=== PATIENT | female | born 1950 | race Caucasian/White ===

== ENCOUNTER → 2020-04-30 08:09 | Outpatient (BNVA) | payer BC, SELFPAY | PROVIDERS: PCP Family Medicine; Referring Provider Family Medicine; Visit Provider Surgery | DX: E66.9 Obesity, unspecified (principal); I10 Essential (primary) hypertension; R11.0 Nausea; Z68.38 Body mass index [BMI] 38.0-38.9, adult ==

== ENCOUNTER 2020-05-08 09:25 | Outpatient (REF) | payer BC, SELFPAY ==
[2020-05-08 10:43] LABS: MANUAL DIFF FLAG NO
[2020-05-08 10:48] LABS: Basophils Percent Auto 0.3 % (0-2); Eosinophils Absolute Auto 0.1 X10*3/uL (0.0-0.4); Eosinophils Percent Auto 1.7 % (0-4); Hematocrit 39.5 % (37-47); Hemoglobin 12.6 g/dl (12.0-16.0); Imm Gran Abs Auto 0.02 X10*3/uL (0.00-0.03); Imm Gran Pct Auto 0.3 % (0.0-0.4); Lymphocytes Absolute Auto 1.1 X10*3/uL (1.2-4.9); Lymphocytes Percent Auto 18.3 % (20-40); Mean Corpuscular HGB Conc 31.9 g/dl (31.0-35.0); Mean Corpuscular Hemoglobin 31.7 pg (27.0-33.0); Mean Corpuscular Volume 99.2 fL (80-98); Mean Platelet Volume 11.9 fL (9.4-12.3); Monocytes Absolute Auto 0.4 X10*3/uL (0.1-1.2); Monocytes Percent Auto 6.2 % (2-11); Neutrophils Absolute Auto 4.2 X10*3/uL (2.0-8.3); Neutrophils Percent Auto 73.2 % (45-73); Platelet Count 220 X10*3/uL (160-400); Red Blood Count 3.98 X10*6/uL (4.20-5.50); Red Cell Distribution Width 12.9 % (11.0-16.0); White Blood Count 5.8 X10*3/uL (4.8-10.8)
[2020-05-08 10:53] LABS: INTERNATIONAL NORM RATIO 1.1 (0.9-1.1)
[2020-05-08 10:55] LABS: Partial Thromboplastin Time 34.2 SEC (24.1-38.0)
[2020-05-08 11:19] LABS: Alanine Aminotransferase 17 U/L (0-31); Albumin Level 4.4 g/dL (3.5-5.0); Alkaline Phosphatase 85 U/L (39-117); Anion Gap 11 (12-20); Aspartate Amino Transferase 18 U/L (5-31); Bilirubin Total 0.7 mg/dL (0.0-1.0); Blood Urea Nitrogen 26 mg/dL (9-16); C Reactive Protein 1.09 mg/dL (< or = 0.50); Calcium 9.2 mg/dL (8.4-10.2); Carbon Dioxide 31 mmol/L (22-29); Chloride 101 mmol/L (96-108); Cholesterol 192 mg/dL; Estimated Glomerular Filt Rate > 60; Glucose Fasting 93 mg/dL (60-99); HDL Cholesterol 53 mg/dL; LDL Cholesterol Calculated 121 mg/dl; Potassium 4.4 mmol/l (3.3-5.1); Sodium 139 mmol/L (135-145); Total Protein 6.9 g/dL (6.5-8.0); Triglycerides 92 mg/dL
[2020-05-08 11:42] LABS: Thyroid Stimulating Hormone 1.45 mIU/mL (0.32-4.0)
[2020-05-08 11:51] LABS: Estimated Average Glucose 108 mg/dL; Hemoglobin A1c % 5.4 %
[2020-05-09 12:57] LABS: Insulin Level Total 12.1 uIU/mL
== END 2020-05-08 09:26 | disposition home or self-care (01) ==
LOC: HO.LAB 09:25
PROVIDERS: PCP Family Medicine; Visit Provider Surgery
DX: E66.9 Obesity, unspecified (principal); Z68.38 Body mass index [BMI] 38.0-38.9, adult
CPT/HCPCS: 36415; 80053; 80061; 83036; 83525; 84443; 85025; 85610; 85730; 86140; 86850; 86900; 86901

== ENCOUNTER → 2020-05-09 13:50 | Outpatient (BNVA) | payer BC, SELFPAY | PROVIDERS: PCP Family Medicine; Visit Provider Physician Assistant | DX: Z76.89 Persons encountering health services in other specified circumstances (principal) ==

== ENCOUNTER 2020-05-13 06:34 | Inpatient (IN) | payer BC, SELFPAY ==
[2020-05-09 12:02] VITALS: BMI 38.2
--- NOTE | 2020-05-12 15:13 | P.CONAN_ITS ---
Documented by User: Norma Das 05/12/20 15:24 HPI - Anesthesia Eval Consult details Narrative: 69yo F for gastric sleeve Cardiac clearance called for 05/12/20 [facility] Past Medical History Medical History Arthritis Atrial fibrillation Back pain Depression GERD (gastroesophageal reflux disease) Hypertension Obesity SALVADOR on CPAP Family History Family History Father CHF (congestive heart failure) Heart attack Mother CHF (congestive heart failure) DM (diabetes mellitus) Brother No problems noted. Son No problems noted. Son No problems noted. Surgical History Surgical History History of uvulopalatopharyngoplasty Hx of colonoscopy S/P laparoscopic cholecystectomy Status post replacement of right shoulder joint Status post right knee replacement Social History Social History Do you presently have visiting nurse or other home services: No Alcohol intake: current Smoking Status: Former smoker Use of substances other than those prescribed or required for medical reasons: No Have you been hit, kicked, punched, or otherwise hurt by someone within the past year? If so, by whom?: No Spiritual Healthcare Practices: Buddhist Advance Directives: No Advance Directives Information Provided: No Advance Directives on File: No Recently lost weight without trying: No Meds Allergies Allergy/AdvReac Type Severity Reaction Status Date / Time No Known Allergies Allergy Verified 05/08/20 09:58 Home Medications Medication Instructions Recorded Confirmed Type citalopram 20 mg tablet 20 mg PO DAILY 04/30/20 05/09/20 History losartan 50 mg tablet 50 mg PO DAILY 04/30/20 05/09/20 History melatonin 3 mg capsule 3 mg PO BEDTIME PRN 04/30/20 05/09/20 History rivaroxaban 20 mg tablet 20 mg PO DAILY 04/30/20 05/09/20 History acetaminophen [Tylenol] 650 mg PO BEDTIME PRN 05/09/20 05/09/20 History cyanocobalamin (vitamin B-12) 1 tab PO DAILY 05/09/20 05/09/20 History omeprazole 20 mg PO DAILY 05/09/20 05/09/20 History Exam Exam Date and Time: May 12, 2020 1513 Height,Weight and Vital Signs: Height 5 ft 3 in Weight 97.976 kg Pertinent Lab Results Pertinent Lab Results: Laboratory Tests 05/08/20 05/08/20 09:55 09:55 WBC 5.8 Hgb 12.6 Hct 39.5 Plt Count 220 Sodium 139 Potassium 4.4 Chloride 101 Carbon Dioxide 31 H BUN 26 H Creatinine 0.82 Laboratory Tests 05/08/20 09:36 Blood Type B Positive Antibody Screen NEGATIVE Laboratory Tests 05/08/20 09:55 PT 13.0 INR 1.1 APTT 34.2 Narrative Narrative: EKG 02/2020: Normal sinus rhythm Left axis deviation Left ventricular hypertrophy with QRS widening Abnormal ECG No previous ECGs available ECHO 02/2020: LVEF 60-65%, mild LVH, impaired relaxation, normal valve doppler, mild dilated LA Documented by User: Satnam Spivey 05/13/20 07:07 [facility] Past Medical History Medical History Arthritis Atrial fibrillation Back pain Depression GERD (gastroesophageal reflux disease) Hypertension Obesity SALVADOR on CPAP Family History Family History Father CHF (congestive heart failure) Heart attack Mother CHF (congestive heart failure) DM (diabetes mellitus) Brother No problems noted. Son No problems noted. Son No problems noted. Surgical History Surgical History History of uvulopalatopharyngoplasty Hx of colonoscopy S/P laparoscopic cholecystectomy Status post replacement of right shoulder joint Status post right knee replacement Social History Social History Do you presently have visiting nurse or other home services: No Alcohol intake: current Smoking Status: Former smoker Use of substances other than those prescribed or required for medical reasons: No Have you been hit, kicked, punched, or otherwise hurt by someone within the past year? If so, by whom?: No Spiritual Healthcare Practices: Buddhist Advance Directives: No Advance Directives Information Provided: No Advance Directives on File: No Recently lost weight without trying: No Meds Allergies Allergy/AdvReac Type Severity Reaction Status Date / Time No Known Allergies Allergy Verified 05/08/20 09:58 Home Medications Medication Instructions Recorded Confirmed Type citalopram 20 mg tablet 20 mg PO DAILY 04/30/20 05/09/20 History losartan 50 mg tablet 50 mg PO DAILY 04/30/20 05/09/20 History melatonin 3 mg capsule 3 mg PO BEDTIME PRN 04/30/20 05/09/20 History rivaroxaban 20 mg tablet 20 mg PO DAILY 04/30/20 05/09/20 History acetaminophen [Tylenol] 650 mg PO BEDTIME PRN 05/09/20 05/09/20 History cyanocobalamin (vitamin B-12) 1 tab PO DAILY 05/09/20 05/09/20 History omeprazole 20 mg PO DAILY 05/09/20 05/09/20 History Exam Airway Mallampati Class: II TM Dist: >3cm Neck ROM: Full Loose/Missing/Broken Teeth: No Heart: rrr+[id number] Lungs: cta b/l Assessment and Plan Assessment Anesthesia Assessment: Anesthesia Plan Discussed, PAT Visit and Chart Reviewed Final Anesthetic Review NPO: Yes ASA Class: III Final Preanesthetic Review: No Changes in Pt Med Stat, Meds/Allgs Chart Reviewed, Consent Obtained/Reviewed and Anes Risks/Benef Reviewed Patient Risk: Intermediate Procedure Risk: Low Assessment/Block/Sedation in SS: Assess/Block/Sedation-SS Anesthetic Plan Anesthetic Plan: GA Disposition: Standard PACU
[2020-05-13] VITALS (15 sets, daily range): BP systolic 118–163; BP diastolic 55–82; PULSE 64–82; RESP 16–18; TEMP 36.1–37.3; O2SAT 92–99
[2020-05-13 06:44] LABS: SARS COV2 PCR INHOUSE NEGATIVE (Negative)
[2020-05-13] MEDS: Lactated Ringers 1,000 ML 100 ML IVCONT ×3 (06:59→21:10)
--- NOTE | 2020-05-13 07:27 | MHC.SHP ---
Pre-Procedural Eval Section A The patient is an INPATIENT: Yes The History & Physical has been completed within 30 days and I have reviewed it.: Yes Section B Chief Complaint: obesity/GASTRIC SLEEVE Relevant Family History (Specify if Yes): No Relevant Social History: None Allergies: Allergies Allergy/AdvReac Type Severity Reaction Status Date / Time No Known Allergies Allergy Verified 05/08/20 09:58 Review of Systems Sugical H&P ROS: Negative: Constitution, Cardiovascular, Respiratory, Neurological, Psychiatric, Hem-Onc, Allergic/Immunologic, Gastrointestinal, Genitourinary, Musculoskeletal, Integumentary, Endocrine and Eyes/Ears/Nose/Throat Exam Surgical H&P Exam: Normal: HEENT, Normal: Heart, Normal: Lungs, Normal: Extremities, Normal: Abdomen, Normal: Skin and Normal: Neurological Plan Diagnosis/Plan: Unchanged Patient has been examined and remains a candidate for the planned procedure
--- NOTE | 2020-05-13 09:43 | PM.OP ---
Brief Operative Note Date of procedure: 05/13/20 Pre-op diagnosis: Severe obesity with a BMI Post-op diagnosis: same Procedure: Esophago-gastroscopy, laparoscopic sleeve gastrectomy and laparoscopic gastropexy INITIAL PATIENT BMI ON PRESENTATION AT OUR OFFICE: 41.3 kg/m2 LAST BMI BEFORE SURGERY: 38.5 kg/m2 COMORBIDITIES: Atrial fibrilation, hypertension, GERD, sleep apnea, liver steatosis, depression, left ventricular hypertrophy, left atrium dilation, impaired diastolic relaxation The patient participated in an intensive weekly lifestyle intervention and exercise program during which the patient has lost between the initial office visit and the last preoperative visit 16.5 lbs, or 7.07% of initial actual body weight. The patient met the BMI-criteria for bariatric surgery based on the BMI on initial presentation. The patient should not be penalized for achieving such weight loss because it is not sustainable long-term without surgical intervention and it was achieved in preparation for bariatric surgery under my direction and based on my published research ([email or web address] and [email or web address]/article/[email or web address])28230-X/pdf) that a 10% preoperative weight loss improves long-term weight loss after surgery and reduces perioperative complications. Insurance carriers such as [facility] have endorsed my recommendations and have included in their policies criteria to include a 10% preoperative weight loss requirement. PROCEDURE: Esophago-gastroscopy, laparoscopic repair of incarcerated diaphragmatic hernia, laparoscopic lysis of adhesions, laparoscopic sleeve gastrectomy and laparoscopic gastropexy INDICATIONS: This is a 51 year-old female who was electively scheduled for laparoscopic, possibly open sleeve gastrectomy. The risks and complications of the procedure were discussed with the patient in advance, particularly the possibility of ; pulmonary embolism; staple line leak; bleeding; GERD; cardiac, pulmonary, or renal complications; as well as long-term problems such as insufficient weight loss, vitamin deficiency, strictures, or ulcers. The patient understood all the risks, and was in agreement to proceed with surgery. DESCRIPTION OF PROCEDURE: After informed consent was obtained from the patient, the patient was given preoperative antibiotics, and was transferred to the operating room. After successful induction of general anesthesia, a Najera catheter and pneumatic compressive devices were placed on both lower extremities. An upper endoscopy was performed next. The oropharynx and esophagus appeared to be within normal limits. There was a diaphragmatic hernia present of moderate size consistent with the findings of the preoperative upper GI. The stomach was entered. Then after all fluid and air were suctioned and the stomach was fully decompressed, the scope was withdrawn and secured in the mid esophagus. The patient was then prepped and draped in the usual sterile manner, and abdominal access was established at the right upper quadrant with the Juan technique. A 12 mm blunt port was inserted, and the abdomen was insufflated with CO2 to a pressure of 15 mmHg. Under direct visualization, additional ports were placed, specifically two 5 mm Versi-step ports to the left upper quadrant, and a 5 mm Versi-Step port to the right upper quadrant. 1% lidocained plan was used to infiltrate all port sites as well as all fascia defects. Following that, the patient was placed in a steep reverse Trendelenburg position. An additional 5 mm port was placed to the right flank for the Mediflex retractor that was used to retract the left lobe of the liver. The gastro-esophageal fat pad was opened with the ultrasonic device (Thunderbeat, Olympus) and the anterior esophagus and hiatus were exposed. The angle of His was opened with the ultrasonic device the fundus of the stomach from any diaphragmatic and splenic attachments. I then opened the gastrocolic ligament between the transverse colon and the greater curvature of the stomach with the ultrasonic device to enter the lesser sac and facilitate the ligation of the short gastric vessels. I started at a mid-point along the greater curvature and using the Thunderbeat, all short gastric vessels were divided all the way to the angle of His until the left may was completely dissected at its entirety. I then divided the gastro-colic ligament distally to a distance of about 3-4 cm proximal to the esophagus. The stomach was then divided transversely with one Endo MARY GRACE-45 purple and five MARY GRACE-60 articulating orange loads using the AEON stapler and loads. Every effort was made that the gastric sleeve had a tubular shape and an even caliber throughout. Once the sleeve resection was completed, the staple line of the gastric sleeve was reinforced with Hemoclips. The resected stomach was retrieved without difficulty from the Juan port. A gastropexy was then performed in order to prevent postoperative GERD and partial gastric volvulus. Several interrupted 2.0 Surgidac sutures were placed between the sleeve's staple line and the previously divided greater omentum and gastro-colic ligament using the Endo-Stitch device. An upper endoscopy was performed. There was no narrowing at the GE junction. The scope was easily advanced all the way to the pylorus which was clearly visualized. There was no narrowing anywhere and the sleeve's caliber was even throughout. The sleeve's staple line was inspected and there was no evidence of ischemia, bleeding or dehiscence. At that point the gastroscope was withdrawn from the patient?s mouth while we were decompressing the bowel and the stomach from any remaining air. I looked into the lesser sac to see how the sleeve was situating and it was situating well. There was no bleeding from the staple line, spleen, or short gastric vessels. The Mediflex retractor was removed, and the undersurface of the liver was inspected and there was no bleeding. The patient was placed in supine position. I closed the fascial defect of the 12 mm port site with a figure of eight #1 Polysorb suture. Then 100 cc 0.25 % Marcaine plain with 10 mg of Dexamethasone were used to infiltrate the fascial closure as well as all skin incisions. At this point, the abdomen was deflated, all ports were removed under direct vision, and no bleeding was noted from any of the port sites. The skin incisions were irrigated with saline and were closed with 4-0 absorbable monofilament sutures. Steri-Strips and OpSites were used to cover all incisions. The patient was extubated and was transferred in stable condition to the recovery room for further care. I was present and performed all hernandez parts of the procedure. Cyrus was the studio assistant. There were no residents to assist with this case. Please send copy of the operative report to Dr. Rod. Babatunde Mora MD, PhD, FACS Surgeon: Alexandre Mora MD Anesthesia: GETA, local and other (TAP block) Shuttle Buggy Operator: Silva Bridges Estimated blood loss (mL): 10 IV fluids (mL): 2,500 Urine output (mL): 0 (no Najera to record) Pathology: other (Stomach) Condition: stable Disposition: PACU
--- NOTE | 2020-05-13 09:51 | PM.PNGS ---
Subjective Subjective Interval history: Patient has mild incisional pain. Was able to ambulate and use the incentive spirometer. Physical Exam Vital Signs: Vital Signs: Vital Signs Temp Pulse Resp BP Pulse Ox 05/13/20 06:13 98.6 F 64 16 138/71 99 Body Mass Index 38.2 Resp: Effort & Inspection: normal respiratory effort and able to speak in complete sentences Cardio: Jugular venous distension: no JVD Rate: regular rate GI: Inspection: Yes normal to inspection and Yes incision (clean) Extrem: Right lower extremity: normal to inspection (no calf tenderness) Left lower extremity: normal to inspection (no calf tenderness) Progress Note: A&P Assessment and plan (1) BMI 38.0-38.9,adult: Status: Acute (2) Hypertension: Status: Acute (3) Depression: Status: Acute (4) Obesity: Status: Acute (5) Sleep apnea with use of continuous positive airway pressure (CPAP): Status: Acute (6) Left ventricular hypertrophy: Status: Acute (7) GERD (gastroesophageal reflux disease): Status: Acute (8) Left atrial dilation: Status: Acute (9) Grade I diastolic dysfunction: Status: Acute (10) S/P laparoscopic sleeve gastrectomy: Status: Acute Assessment and Plan: 69 year old female was admitted 05/13/20 with morbid obesity and comorbidities. Problem 1: s/p laparoscopic sleeve gastrectomy, gastropexy Status: Doing well Plan: Check am labs, If OK, will continue phase 1 bariatric diet and discharge later today. Fall Risk Details Current Medications: Current Medications Generic Name Dose Route Start Last Admin Trade Name Freq PRN Reason Stop Dose Admin Fentanyl 25 mcg 05/13/20 07:59 Fentanyl Citrate/Pf 100 Mcg/2 Ml Vial IVPUSH Q5M PRN Pain, Moderate (Pain Scale 4-6 Hydromorphone HCl 0.5 mg 05/13/20 07:59 Hydromorphone Hcl 0.5 Mg/0.5 Ml Syringe IVPUSH Q5M PRN Pain, Severe (Pain Scale 7-10) Lactated Ringer's 1,000 mls @ 100 mls/hr 05/13/20 06:15 05/13/20 06:59 Lr IVCONT 100 mls/hr .Q10H SHIV Administration Ondansetron HCl 4 mg 05/13/20 07:59 Ondansetron Hcl 4 Mg/2 Ml Vial IVPUSH ONCE PRN Nausea and Vomiting Time Spent With Patient Time: Total time spent is greater than 50% in coordination of care (as documented) at patient's floor/unit and/or counseling patient: Time with patient: less than 15 minutes
--- NOTE | 2020-05-13 09:59 | PM.PNGS ---
Physical Exam Vital Signs: Vital Signs: Vital Signs Temp Pulse Resp BP Pulse Ox 05/13/20 06:13 98.6 F 64 16 138/71 99 Body Mass Index 38.2 Progress Note: A&P Fall Risk Details Current Medications: Current Medications Generic Name Dose Route Start Last Admin Trade Name Freq PRN Reason Stop Dose Admin Fentanyl 25 mcg 05/13/20 07:59 Fentanyl Citrate/Pf 100 Mcg/2 Ml Vial IVPUSH Q5M PRN Pain, Moderate (Pain Scale 4-6 Hydromorphone HCl 0.5 mg 05/13/20 07:59 Hydromorphone Hcl 0.5 Mg/0.5 Ml Syringe IVPUSH Q5M PRN Pain, Severe (Pain Scale 7-10) Lactated Ringer's 1,000 mls @ 100 mls/hr 05/13/20 06:15 05/13/20 06:59 Lr IVCONT 100 mls/hr .Q10H SHIV Administration Ondansetron HCl 4 mg 05/13/20 07:59 Ondansetron Hcl 4 Mg/2 Ml Vial IVPUSH ONCE PRN Nausea and Vomiting Time Spent With Patient Time: Total time spent is greater than 50% in coordination of care (as documented) at patient's floor/unit and/or counseling patient:
[2020-05-13] MEDS: Famotidine/PF 20 MG/2 ML VIAL IVPUSH ×2 (12:04→21:10)
[2020-05-13 12:16] LABS: Hematocrit 40.2 % (37-47); Hemoglobin 13.1 g/dl (12.0-16.0)
[2020-05-13 12:37] LABS: Anion Gap 14 (12-20); Blood Urea Nitrogen 11 mg/dL (9-16); Calcium 8.8 mg/dL (8.4-10.2); Carbon Dioxide 25 mmol/L (22-29); Chloride 102 mmol/L (96-108); Creatinine Clr Calc Pharmacy 77.9; Estimated Glomerular Filt Rate > 60; Glucose Random 140 mg/dL (60-115); Potassium 3.9 mmol/l (3.3-5.1); Sodium 137 mmol/L (135-145)
[2020-05-13] MEDS: ceFAZolin Sodium/Dextrose,Iso 2 GM/50 ML PIGGYBACK IV (15:10)
[2020-05-13] MEDS: Losartan Potassium 50 MG TABLET PO (19:30)
[2020-05-14 00:20] VITALS: BP 146/84; PULSE 64; RESP 18; TEMP 37.2; O2SAT 96
[2020-05-14 04:00] VITALS: BP 131/70; PULSE 56; RESP 16; TEMP 36.3; O2SAT 96
[2020-05-14 06:40] LABS: Basophils Percent Auto 0.1 % (0-2); Hemoglobin 11.6 g/dl (12.0-16.0); Imm Gran Abs Auto 0.04 X10*3/uL (0.00-0.03); Imm Gran Pct Auto 0.5 % (0.0-0.4); Lymphocytes Absolute Auto 0.6 X10*3/uL (1.2-4.9); Lymphocytes Percent Auto 6.7 % (20-40); MANUAL DIFF FLAG SCAN; Mean Corpuscular HGB Conc 32.2 g/dl (31.0-35.0); Mean Corpuscular Hemoglobin 31.6 pg (27.0-33.0); Mean Corpuscular Volume 98.1 fL (80-98); Mean Platelet Volume 12.1 fL (9.4-12.3); Monocytes Absolute Auto 0.5 X10*3/uL (0.1-1.2); Neutrophils Absolute Auto 7.4 X10*3/uL (2.0-8.3); Neutrophils Percent Auto 86.7 % (45-73); Platelet Count 193 X10*3/uL (160-400); Red Blood Count 3.67 X10*6/uL (4.20-5.50); Red Cell Distribution Width 12.8 % (11.0-16.0); SCAN SMEAR FLAG 1; White Blood Count 8.5 X10*3/uL (4.8-10.8)
[2020-05-14] MEDS: Lactated Ringers 1,000 ML 100 ML IVCONT (07:12)
[2020-05-14 07:41] VITALS: BP 133/80; PULSE 60; RESP 18; TEMP 36; O2SAT 98
[2020-05-14 07:41] LABS: Anion Gap 13 (12-20); Blood Urea Nitrogen 9 mg/dL (9-16); Carbon Dioxide 28 mmol/L (22-29); Chloride 101 mmol/L (96-108); Creatinine Clr Calc Pharmacy 82.2; Estimated Glomerular Filt Rate > 60; Glucose Random 127 mg/dL (60-115); Potassium 4.2 mmol/l (3.3-5.1); Sodium 138 mmol/L (135-145)
[2020-05-14 07:46] LABS: Calcium 8.7 mg/dL (8.4-10.2)
[2020-05-14] MEDS: Famotidine/PF 20 MG/2 ML VIAL IVPUSH (08:17)
[2020-05-14] MEDS: Escitalopram Oxalate 10 MG TABLET PO (08:17)
--- NOTE | 2020-05-14 08:28 | MHC.CM.PN ---
pt lives c her spouse in their home. she reports he is independent in his care. she is retired and drives a car. pt's spouse can help him should he have any needs. this will include a ride home at dc. pt denies the need for vna at dc. dc plan is home no svcs. cm to cont. to follow.
--- NOTE | 2020-05-14 09:27 | HO.POSTANES ---
Post Anesthesia Evaluation Post Anesthesia Evaluation Vital Signs: Vital Signs Temp Pulse Resp BP Pulse Ox 05/14/20 07:41 96.8 F 60 18 133/80 98 05/14/20 04:00 97.4 F 56 16 131/70 96 05/14/20 00:20 98.9 F 64 18 146/84 H 96 Anesthesia: General Mental Status: Awake Pain Control: Satisfactory Nausea/Vomiting: None Hydration: Adequate Anesthesia-Related Issues: No Anes. Related Issues
[2020-05-14 09:31] LABS: SLIDE REVIEW VERIFIED
--- NOTE | 2020-07-15 13:34 | P.DS_ITS ---
DS: Providers Provider Date of admission: 05/13/20 06:34 Primary care physician: Cat Rod MD DS: Diagnosis Discharge Diagnosis (1) BMI 38.0-38.9,adult: Status: Acute (2) Hypertension: Status: Acute (3) Depression: Status: Acute (4) Obesity: Status: Acute (5) Sleep apnea with use of continuous positive airway pressure (CPAP): Status: Acute (6) Left ventricular hypertrophy: Status: Acute (7) GERD (gastroesophageal reflux disease): Status: Acute (8) Left atrial dilation: Status: Acute (9) Grade I diastolic dysfunction: Status: Acute (10) S/P laparoscopic sleeve gastrectomy: Status: Acute DS: Medications Discharge Medications Home Medications: Home Medications Medication Instructions Recorded Confirmed citalopram 20 mg tablet 20 mg PO DAILY 04/30/20 05/09/20 losartan 50 mg tablet 50 mg PO DAILY 04/30/20 05/09/20 melatonin 3 mg capsule 3 mg PO BEDTIME PRN 04/30/20 05/09/20 rivaroxaban 20 mg tablet 20 mg PO DAILY 04/30/20 05/09/20 acetaminophen [Tylenol] 650 mg PO BEDTIME PRN 05/09/20 05/09/20 Previous Rx's Medication Instructions Recorded ondansetron HCl 4 mg tablet 4 mg PO Q6H PRN #30 tab 04/30/20 pantoprazole 40 mg tablet,delayed 40 mg PO DAILY #30 tab 04/30/20 release sucralfate 100 mg/mL oral 10 ml PO BID #420 ml 04/30/20 suspension psyllium husk 0.52 gram capsule 0.52 g PO BEDTIME #30 cap 05/28/20 DS: Summary Time Spent with Patient Time attestation: Total time spent providing and/or coordinating discharge services: Physical Exam Vital Signs: Vital Signs: Last Vital Signs Temp 96.8 F 05/14/20 07:41 Pulse 60 05/14/20 07:41 Resp 18 05/14/20 07:41 BP 133/80 05/14/20 07:41 Pulse Ox 98 05/14/20 07:41 Body Mass Index 38.2 DS: Data Data Completed and Pending Completed studies during hospitalization [Text1]: Pending at discharge 05/13/20 09:14 Surgical [PTH] Routine Procedures Excision of Stomach, Percutaneous Endoscopic Approach, Vertical (05/13/20) Labs on day of discharge: 05/13/20 05:39 SARS COV2 PCR INHOUSE Stat 05/13/20 06:09 Acetaminophen [Ofirmev] 1,000 mg in 100 ml IVPB PREOP 05/13/20 06:15 Lactated Ringers [Lr] 1,000 ml IVCONT 100 mls/hr 05/13/20 06:19 Type and Screen Stat 05/13/20 06:22 Acetaminophen [Ofirmev] 1,000 mg in 100 ml IV PREOP 05/13/20 06:26 ceFAZolin Sodium/Dextrose,Iso [Ancef] 2 gm in 50 ml .ROUTE As directed 05/13/20 06:56 Bupivacaine MPF 0.25 % [Sensorcaine-MPF 0.25% 10 ML] 10 ml .ROUTE .STK-MED ONE Lidocaine HCl 1 % MPF [Xylocaine 1 % MPF] 5 ml .ROUTE .STK-MED ONE 05/13/20 07:14 Ketamine HCl/NS 50 mg IVPUSH .STK-MED ONE Lidocaine HCl 2 % MPF [Xylocaine 2 % MPF] 5 ml .ROUTE .STK-MED ONE Midazolam HCl/PF [Versed] 2 mg IVPUSH .STK-MED ONE Rocuronium [place] [Zemuron] 100 mg IV .STK-MED ONE Succinylcholine Chloride [Quelicin] 100 mg IVPUSH .STK-MED ONE fentaNYL citrate/PF [Sublimaze] 50 mcg .ROUTE .STK-MED ONE propofoL [Diprivan] 200 mg IVPUSH .STK-MED ONE 05/13/20 07:29 dexAMETHasone Sod Phosphate/PF [Decadron] 10 mg .ROUTE .STK-MED ONE 05/13/20 07:59 Continuous pulse oximetry CONT Vital Signs Q1H Vital Signs Q5MIN HYDROmorphone HCl [Dilaudid] 0.5 mg IVPUSH Q5M PRN Phenylephrine HCL 1,000 mcg IVPUSH .STK-MED ONE fentaNYL citrate/PF [Sublimaze] 25 mcg IVPUSH Q5M PRN ondansetron HCL [Zofran] 4 mg IVPUSH ONCE PRN 05/13/20 08:01 Glycopyrrolate [Robinul] 0.2 mg .ROUTE .STK-MED ONE 05/13/20 08:18 dexAMETHasone sod phosphate [Decadron] 4 mg .ROUTE .[facility] ONE ondansetron HCL [Zofran] 4 mg .ROUTE .STK-MED ONE 05/13/20 08:20 HYDROmorphone HCl [Dilaudid] 2 mg .ROUTE .STK-MED ONE 05/13/20 09:14 Surgical [PTH] Routine 05/13/20 09:15 Sugammadex Sodium [Bridion] 200 mg IVPUSH .STK-MED ONE 05/13/20 09:48 Ambulate Q4H WHILE AWAKE Compression Therapy QSHIFT Cont. Telemetry w/Vital Sign limit Q4HR Head of bed elevation DIRECTED Incentive Spirometry Q1HR WHILE AWAKE Intake and Output Q4HR Oxygen administration Nasal Cannula 2 lpm Code Status Routine HYDROmorphone HCl [Dilaudid] 0.25 mg IVPUSH Q4H PRN Metoclopramide HCl [Reglan] 10 mg IVPUSH Q6H PRN ondansetron HCL [Zofran] 4 mg IVPUSH Q4H PRN 05/13/20 09:49 Vital Signs Q4H 05/13/20 09:50 Apply Abdominal Binder TOLERATED 05/13/20 Breakfast NPO Diet Acetaminophen [Ofirmev] 1,000 mg in 100 ml IV Q6H Famotidine/PF [Pepcid/PF] 20 mg IVPUSH BID Lactated Ringers [Lr] 1,000 ml IVCONT 100 mls/hr Losartan Potassium [Cozaar] 50 mg PO DAILY 05/13/20 11:55 Basic Metabolic Panel Urgent 05/13/20 11:56 Hemoglobin and Hematocrit Urgent 05/13/20 16:10 ceFAZolin Sodium/Dextrose,Iso [Ancef] 2 gm in 50 ml IV POSTOP@1610 05/13/20 18:00 Acetaminophen [Ofirmev] 1,000 mg in 100 ml IV Q6H 05/13/20 21:00 Losartan Potassium [Cozaar] 50 mg PO BEDTIME 05/14/20 06:10 Basic Metabolic Panel DAILY@0600 Complete Blood Count Auto Diff DAILY SLIDE REVIEW Routine 05/14/20 09:00 Escitalopram Oxalate [Lexapro] 10 mg PO DAILY Laboratory Last Values WBC 8.5 X10*3/uL (4.8-10.8) 10/21/20 06:10 RBC 3.67 X10*6/uL (4.20-5.50) L 05/14/20 06:10 Hgb 11.6 g/dl (12.0-16.0) L 05/14/20 06:10 Hct 36.0 % (37-47) L 05/14/20 06:10 MCV 98.1 fL (80-98) H 05/14/20 06:10 MCH 31.6 pg (27.0-33.0) 05/14/20 06:10 MCHC 32.2 g/dl (31.0-35.0) 05/14/20 06:10 RDW 12.8 % (11.0-16.0) 05/14/20 06:10 Plt Count 193 X10*3/uL (160-400) 05/14/20 06:10 MPV 12.1 fL (9.4-12.3) 05/14/20 06:10 Immature Gran % (Auto) 0.5 % (0.0-0.4) H 05/14/20 06:10 Neut % (Auto) 86.7 % (45-73) H 05/14/20 06:10 Lymph % (Auto) 6.7 % (20-40) L 05/14/20 06:10 [place] % (Auto) 6.0 % (2-11) 05/14/20 06:10 Eos % (Auto) 0.0 % (0-4) 05/14/20 06:10 Baso % (Auto) 0.1 % (0-2) 05/14/20 06:10 Lymph # (Auto) 0.6 X10*3/uL (1.2-4.9) L 05/14/20 06:10 [place] # (Auto) 0.5 X10*3/uL (0.1-1.2) 05/14/20 06:10 Eos # (Auto) 0.0 X10*3/uL (0.0-0.4) 05/14/20 06:10 Baso # (Auto) 0.0 X10*3/uL (0.0-0.2) 05/14/20 06:10 Abs Immat Gran (auto) 0.04 X10*3/uL (0.00-0.03) H 05/14/20 06:10 Absolute Neuts (auto) 7.4 X10*3/uL (2.0-8.3) 05/14/20 06:10 Absolute Nucleated RBC 0.000 X10*3/uL (0.0-0.012) 05/14/20 06:10 Nucleated RBC % (auto) 0.0 /100WBC (0.0-0.2) 05/14/20 06:10 Smear Tech's Comments VERIFIED 05/14/20 06:10 Sodium 138 mmol/L (135-145) 05/14/20 06:10 Potassium 4.2 mmol/l (3.3-5.1) 05/14/20 06:10 Chloride 101 mmol/L (96-108) 05/14/20 06:10 Carbon Dioxide 28 mmol/L (22-29) 05/14/20 06:10 Anion Gap 13 (12-20) 05/14/20 06:10 BUN 9 mg/dL (9-16) 05/14/20 06:10 Creatinine 0.72 mg/dL (0.5-1.4) 05/14/20 06:10 Estim Creat Clear Calc 82.2 05/14/20 06:10 Estimated GFR > 60 05/14/20 06:10 Random Glucose 127 mg/dL (60-115) H 05/14/20 06:10 Calcium 8.7 mg/dL (8.4-10.2) 05/14/20 06:10 Coronavirus (PCR) NEGATIVE (Negative) 05/13/20 05:39 Blood Type B Positive 05/13/20 06:19 Antibody Screen NEGATIVE 05/13/20 06:19 Discharge Plan Discharge Anticipated Discharge Date/Time: 05/14/20 11:00 Patient Disposition: Home, Self-Care Referrals: Cat Rod MD [Primary Care Provider] - Discharge Medications: Continued acetaminophen [Tylenol] 325 mg Tablet 650 mg PO BEDTIME PRN (Reason: Pain) RF: 0 citalopram 20 mg tablet 20 mg PO DAILY RF: 0 losartan 50 mg tablet 50 mg PO DAILY RF: 0 melatonin 3 mg capsule 3 mg PO BEDTIME PRN (Reason: Sleep) RF: 0 ondansetron HCl [Zofran] 4 mg tablet 4 mg PO Q6H PRN (Reason: nausea and vomiting) Qty: 30 RF: 0 pantoprazole 40 mg tablet,delayed release (DR/EC) 40 mg PO DAILY Qty: 30 RF: 2 sucralfate 100 mg/mL suspension 10 ml PO BID Qty: 420 RF: 2 Held Xarelto 20 mg tablet 20 mg PO DAILY RF: 0 Hold Instructions: Do not restart until discussed with Dr Mora Discontinued peg 3350-electrolytes [Golytely] 236-22.74-6.74 -5.86 gram recon soln 240 ml PO Q10M Qty: 4000 RF: 0 cyanocobalamin (vitamin B-12) 500 mcg tablet 1 tab PO DAILY RF: 0 omeprazole 20 mg Capsule,Delayed Release(Dr/Ec) 20 mg PO DAILY RF: 0 peg 3350-electrolytes [Golytely] 236-22.74-6.74 -5.86 gram recon soln 120 ml PO Q10M Qty: 4000 RF: 0 No Action psyllium husk [Fiber Laxative (psyllium husk)] 0.52 gram capsule 0.52 g PO BEDTIME Qty: 30 RF: 3 Discharge Orders: Discharge Order (Routine); Ordered 05/14/20 Ordered By: Alexandre Mora Diet: other Activity on Discharge: No heavy lifting Discharge Date/Time: 05/14/20 09:58 Visit Report Forms: Patient Portal Discharge page Care Plan Goals: weight loss Health Concerns: obesity, afib Plan of Treatment: see discharge instructionsADMITTING DIAGNOSIS: morbid obesity, A fib, hypertension, depression, SALVADOR DISCHARGE DIAGNOSIS: same, s/p laparoscopic sleeve gastrectomy PAST SURGICAL HISTORY: lap rosanna, R TKR, R shoulder PROCEDURE: upper endoscopy, laparoscopic sleeve gastrectomy DISCHARGE SUMMARY: History of Present Illness: The patient is a 68 year-old woman with a BMI of 41.3 kg/m2 and associated co- morbidities as described above. The patient had extensive work-up,lost 17.4 lbs preoperatively and was electively scheduled for laparoscopic, possible open sleeve gastrectomy and gastropexy. Risks and complications of the surgery were discussed with the patient in advance, particularly the possibility of , pulmonary embolism, anastomotic leak, bleeding, bowel injury, GERD, cardiac, renal or pulmonary complications. The patient understood all the risks and wasin agreement with the surgical plan. Hospital Course: The patient underwent an uneventful laparoscopic sleeve gastrectomy with gastropexy the day of admission. Postoperatively, the patient was transferred to the surgical floor and hemoglobin the first 8 hours after surgery was 12.6 mg/dl. The patient was on IV Acetaminophen and IV dilaudid for pain control. Patient was started on bariatric phase 1 diet POD #0. On postoperative day one, the patient was feeling well without nausea, vomiting, fevers, or tachycardia. The patient had some mild incisional pain. The abdomen was soft. Follow-up hemoglobin was _ mg/dl. The white count was _ with _% neutrophils, the creatinine _ mg/dl was and the potassium _mmol/lt. On the morning of postoperative day one, the patient was continued on 1 ounce of water or ice every half hour. During the first day, the patient did fairly well, having some incisional pain, but able to ambulate adequately and to tolerate liquids well. Since the patient is doing well, we decided that the patient was ready to be discharged. The patient was given instructions to follow-up with me next week and to call my office for any fever over 101, persistent abdominal pain, nausea, vomiting, GERD, change in the color of the RICHARD fluid, symptoms of DVT such as calf tenderness, or leg swelling, or pulmonary embolism such as chest pain or shortness of breath. The patient was also instructed to drink 40-60 ounces of liquids per day using the 1-ounce cups. The patient was given prescription for Tylenol for pain, Zofran prn for nausea, and pantoprazole and carafate. The patient was encouraged to ambulate and use the incentive spirometer. The patient was allowed to shower, but no baths, and encouraged to stay active at home. All of these instructions were given to the patientpersonally. All questions were answered and the patient understood all instructions, the instructions were also given to the patient in print.
== END 2020-05-14 09:58 | disposition home or self-care (01) | DRG 403 ==
LOC: HO.SSSA 06:44 → HO.S3 11:35
PROVIDERS: Physician Assistant; Admitting Provider Surgery; PCP Family Medicine; Visit Provider Surgery
PROC: 0DB64Z3 Excision of Stomach, Percutaneous Endoscopic Approach, Vertical (ICD-10-PCS; CPT 43845; principal; 2020-05-13 07:30)
DX: E66.01 Morbid (severe) obesity due to excess calories (principal); I48.91 Unspecified atrial fibrillation; K76.0 Fatty (change of) liver, not elsewhere classified; I11.9 Hypertensive heart disease without heart failure; F32.9 Major depressive disorder, single episode, unspecified; K21.9 Gastro-esophageal reflux disease without esophagitis; G47.30 Sleep apnea, unspecified; Z99.89 Dependence on other enabling machines and devices; Z68.38 Body mass index [BMI] 38.0-38.9, adult; Z96.651 Presence of right artificial knee joint; Z96.611 Presence of right artificial shoulder joint; Z20.828 Contact with and (suspected) exposure to other viral communicable diseases; Z79.01 Long term (current) use of anticoagulants; Z79.899 Other long term (current) drug therapy
CPT/HCPCS: 36415; 80048; 85014; 85018; 85025; 86850; 86900; 86901; 87635; 88307; 88342; 99224; A4649; J0131; J0330; J0690; J1100; J1170; J2250; J2370; J2405; J3010

== ENCOUNTER → 2020-05-23 07:29 | Outpatient (BNVA) | payer BC, SELFPAY | PROVIDERS: PCP Family Medicine; Visit Provider Surgery | DX: Z76.89 Persons encountering health services in other specified circumstances (principal) ==

== ENCOUNTER → 2020-06-25 08:11 | Outpatient (BNVA) | payer BC, SELFPAY | PROVIDERS: PCP Family Medicine; Visit Provider Surgery | DX: Z76.89 Persons encountering health services in other specified circumstances (principal) ==

== ENCOUNTER → 2020-07-28 08:14 | Outpatient (BNVA) | payer BC, SELFPAY | PROVIDERS: PCP Family Medicine; Visit Provider Surgery | DX: Z76.89 Persons encountering health services in other specified circumstances (principal) ==

== ENCOUNTER → 2020-08-07 08:22 | Outpatient (BNVA) | payer BC, SELFPAY | PROVIDERS: PCP Family Medicine; Visit Provider Physician Assistant | DX: Z76.89 Persons encountering health services in other specified circumstances (principal) ==

== ENCOUNTER 2024-11-22 07:57 | Outpatient (AMB) | payer MEDICARE, SELFPAY ==
--- NOTE | 2024-11-22 08:02 | A.OFFVIS_ITS ---
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 She describes her pain as sharp in nature. She did undergo right total knee replacement surgery approximately 10 years ago. She reports minimal discomfort in her left knee. She states that her left knee pain has gotten worse over the last few years in spite of continued non operative treatments. She has had multiple cortisone injections. The most recent injection gave her minimal relief. She has failed the last 3 months of conservative treatment which has included a home exercise program, physical therapy exercises, Tylenol and anti-inflammatory medicines. At this point her left knee pain is interfering with her activities of daily living and her ability to sleep well through the night. The patient wishes to hold off on left total knee replacement surgery for now. Allergies No Known Allergies Allergy (Verified 11/22/24 08:02) Medication List - Last Reconciled 11/22/24 by Noe Pathak MD acetaminophen (Tylenol) 650 mg PO BEDTIME PRN losartan 50 mg PO DAILY melatonin 3 mg PO BEDTIME PRN PFSH Medical History Grade I diastolic dysfunction Left atrial dilation GERD (gastroesophageal reflux disease) Left ventricular hypertrophy Sleep apnea with use of continuous positive airway pressure (CPAP) Atrial fibrillation Arthritis Back pain GERD (gastroesophageal reflux disease) SALVADOR on CPAP Atrial fibrillation Hypertension Depression Obesity Surgical History History of sleeve gastrectomy S/P laparoscopic sleeve gastrectomy History of uvulopalatopharyngoplasty Hx of colonoscopy S/P laparoscopic cholecystectomy Status post replacement of right shoulder joint Status post right knee replacement Family History Father CHF (congestive heart failure) Heart attack Mother CHF (congestive heart failure) DM (diabetes mellitus) Brother No problems noted. Son No problems noted. Son No problems noted. Social History Do you presently have visiting nurse or other home services: No Alcohol intake: current service: No Current occupational status: retired Physical Exam Const Other: Well-nourished well-developed very friendly female awake alert and oriented x3 in no acute distress Extrem Other: Bilateral lower extremity examination shows good capillary refill, no skin lesions noted, normal sensation light touch Right knee examination shows that the surgical incision is well healed, no erythema, full active extension and flexion to 120 degrees, her patella tracks well Left knee examination shows a minimal effusion, palpable crepitus with range of motion, pain with range of motion, range of motion from -3 degrees to 115 degrees, no instability Results Reviewed Results Reviewed: X-rays of the patient's right knee show a total knee arthroplasty in good position with no signs of loosening, no acute bony abnormalities X-rays of the patient's left knee show end-stage degenerative joint disease with grade 4 [id number] arthritis in her patellofemoral joint, subchondral sclerosis, osteophyte formation, no acute bony abnormalities Assessment & Plan Assessment & Plan (1) Osteoarthritis of left knee: Code(s): M17.12 - Unilateral primary osteoarthritis, left knee Category: Medical Plan Ms. Tripp is doing well after undergoing right total knee replacement surgery. She does have progressively worsening left knee pain due to osteoarthritis. I had a lengthy discussion with the patient regarding the tr eatment options. She wishes to hold off on left total knee replacement surgery for now. She has not gotten good relief from cortisone injections in the past. Thus, I will see whether or not her insurance company will cover a viscosupplementation injection such as Durolane. I will see her back once the injection is available. Feel free to call me at any time should questions regarding her orthopedic management arise. I spent 22 minutes in reviewing the patient's records and imaging studies, seeing the patient and documenting in the medical record. Orders: Orders XR Knee Richard 3V Today M25.561 - Pain in right knee, M25.562 - Pain in left knee Coding Level of Care Code Est Pt Level 3 (56644) Complex EM visit Add On G2211 Diagnoses Osteoarthritis of left knee M17.12
--- OUTSIDE RECORDS SUMMARY | 2024-11-22 08:04 | XMS_ITS | Data Portability ---
Author Organization [place] - [facility] Address [address] [place] [id number] Care Team Providers Care Interactive Media Designer Name Role Phone RAYNE FIGUEROA Primary Care Provider [phone] Assessment Encounter Date Assessment Date Assessment LastModified by Organization Details LastModified Time 08/25/2018 08/25/2018 67 year-old female with history of HTN, obesity, recent right shoulder surgery, who called DC to her home for evaluation of cold like symptoms. Pt reports she began having symptoms on Tuesday about 3 days ago. She was having nasal congestion, ear pain, cough, facial fullness. The cough has been constant with occasional yellow sputum. She has not had fevers, nausea, vomiting. There has been no shortness of breath but her nose makes it hard at times. No abdominal pain, pelvic pain or back pain. her right shoulder has been feeling well, no real pain and sling is comfortable for her. PE:unremarkable . HEENT: unremarkable. BBS: clear, resp easy, O2 sat 98% RA, No rashes. Pt appears non-toxic, presence of nasal congestion and cough. DDX: influenza-pt has been sick for 4 days - presumptive symptomatic treatment. Defer testing. viral illnesses other than flu, UTI: symptoms have improved. Urine dipstick positive only for blood. Will send for culture as patient has had frequent UTIs in the past and will defer treatment until culture results as patient is feeling better and appears in NAD. Discussed this with patient who is agreeable to plans. She is reassured that she does not need antibiotics at this time. Discussed reasons to call back or to seek urgent /ED care. Not available 08/25/2018 15:38:22 09/05/2018 09/05/2018 Overview/Histor y: 67-year-old female who is known to [facility], with a past medical history that includes a right reverse shoulder arthroplasty (5 weeks ago), recent viral URI, was evaluated for periorbital erythema and edema. The patient's symptoms started 2 weeks ago to the left I would some slight swelling and erythema. Today she developed swelling to the right eye. She does complain of some slight pruritus. She denies any new soaps or make up. She has been using Chlor of wipes but he is not sure if she washes her hands after every use. She denies any vision loss, pain or other concerning symptoms. Exam: Pleasant lady sitting in chair NAD. Sling to R arm. Periorbital erythema with some slight angioedema bilaterally (L>R) No corneal injection, discharge or ptosis. No lesions. Slight nasal/sinus congestion. Non tender to percussion of frontal/maxilla ry sinuses. DDx considered, but not limited to: Periorbital dermatitis. Preseptal cellulitis. Conjunctivitis. Allergic reaction. Herpetic rash. Preseptal cellulitis unlikely given bilaterally/afe brile/painless. Conjunctivitis unlikely given no discharge or corneal injection. Periorbital dermatitis possible (no hx of eczema/psoriasi s) Herpes zoster/simplex unlikely as no lesions seen. Non tender. Work up/Results: Plan/Discussion : PT's symptoms are likely allergic ? contact dermatitis. - Will tx with prednisone burst. - Pt also advised to use zyrtec/benadryl as needed for itching. - Will cover for possible cellulitis with Keflex. - Instructed to wash hands after using bleach wipes. Advised FU with PCP/Opthamology as needed. In order to obtain further information and compare any laboratory results/values, I have accessed old patient records. This information was pertinent in my medical decision making today. Time On Scene with Patient: 00:21:52 Not available 09/09/2018 10:06:34 Plan of Treatment Reminders Order Date Submit Date Provider Last Modified By Organization Details Last Modified Time Details Appointments None recorded. Lab culture, urine - Collected by [facility] [email or web address] 2018 019 [facility] (Centralized Electronic Ordering - All Locations), Patient Can Go To The Location Of Their Choice, [id number] 9 07:37:26 urinalysis , dipstick 2018 [facility] [place] [facility], [address] [place], [address], 9 09:46:22 Referral None recorded. Procedures None recorded. Surgeries None recorded. Imaging None recorded. Medication Orders prednisone 20 mg tablet 2018 [id number], [address] [place], [address], 9 13:59:04 prednisone 10 mg tablet 2018 [email or web address] Not available 9 08:06:46 Keflex 500 mg capsule 2018 [id number], [address] [place], [address], 9 13:59:04 Patient TargetsNo targets recorded. Patient Instructions Encounter Date Encounter Id Patient Instructions Last Modified By Organization Details Last Modified Time 08/25/2018 [id number] We came to your home for evaluation of cough, nasal congestion and cold like symptoms. You had some burning in the urine yesterday that went away. We checked your urine and it did not show signs of infection. We are going to do a urine culture. We think you have a viral infection. Please follow up with your PCP as needed and orthopedics as planned. If you develop any pain, shortness of breath, fevers, feeling worse, seek urgent care. We did not give you any prescriptions. [email or web address] Not available 08/25/2018 15:17:15 08/27/2018:0825 Spoke with patient - she hasn't gotten any better but denies getting any worse. She continues with cough. Is getting a lot of sleep and feels tired. Reviewed urine culture results. Denies any shortness of breath, chest pain, weakness, dizziness, nausea or vomiting. Pt is relieved with the results and understands to call for any concerns. - Aaliyah Ortega NP Not available 08/27/2018 08:25:39 09/05/2018 [id number] allergic reactio n: care instructions Not available 09/05/2018 14:11:44 Take Zyrtec or Clariten daily. Use Benadryl at night as needed for itching. Take the prednisone with food daily. Take the prescribed antibiotic and also use a probiotic while taking antibiotics. Thank you for your visit with [facility] today. We cannot always find the exact cause of your symptoms during your initial visit. Please follow up with your primary care provider or specialist to be rechecked or seek medical attention if your symptoms do not go away or get worse. If you develop any new or worsening symptoms and need after hours care, please go to nearest ER and/or call 911. If you have additional concerns or develop a change in your condition between 8am-10pm, please call [facility] at [phone] to help navigate your care. Please seek care or call your primary provider if the rash: 1. Worsens 2. Lasts longer than one week 3. Shows signs of local infection (redness, oozing, or swelling) 4. Occurs together with fever, chills, swollen glands, or other symptoms of infection 5. Looks dark purple or spotted 6. Occurs together with symptoms that suggest autoimmune disorder (recurring fever, malaise, fatigue, unexplained weight loss, or joint swelling) If you have additional concerns or develop a change in your condition between 8am-10pm, please call [facility] at [phone] to help navigate your care. Not available 09/09/2018 10:06:45 Reason for Referral None Reported. Results Created Date Observation Date Name Description Value Unit Range Abnormal Flag Note LastModifiedBy Organization Detail LastModifiedTime 08/25/1908/25/2018 cultu re, urine specimen description URINE Not Available [facility] (Centralized [facility] Ordering - All Locations) Patient Can Go To The Location Of Their Choice, 08/27/2018 07:37:26 08/25/1908/25/2018 cultu re, urine special requests NONE Not Available [facility] (Centralized [facility] Ordering - All Locations) Patient Can Go To The Location Of Their Choice, [id number] 08/27/2018 07:37:26 08/25/1908/26/2018 cultu re, urine culture NO GROWTH Not Available [facility] (Centralized Electronic Ordering - All Locations) Patient Can Go To The Location Of Their Choice, 08/27/2018 07:37:26 08/25/19 19 08/27/2018 cultu re, urine report status FINAL 2018 Not Available [facility] (Centralized Electronic Ordering - All Locations) Patient Can Go To The Location Of Their Choice, [id number] 08/27/2018 07:37:26 08/25/19 19 08/25/2018 urina lysis , dipst ick Appearance clear Not Available [facility] - [facility] [address] [place], [address], 08/25/2018 15:13:02 08/25/1908/25/2018 urina lysis , dipst ick Color yellow Not Available Spr - Home [address] [place], [address], 08/25/2018 15:13:02 08/25/1908/25/2018 urina lysis , dipst ick Glucose negati ve Not Available Spr - Home [address] [place], [address], 08/25/2018 15:13:02 08/25/1908/25/2018 urina lysis , dipst ick Bilirubin negati ve Not Available Spr - Home [address] [place], [address], 08/25/2018 15:13:02 08/25/1908/25/2018 urina lysis , dipst ick Ketones NEG Not Available Spr - Home [address] [place], [address], 08/25/2018 15:13:02 08/25/1908/25/2018 urina lysis , dipst ick Blood + Not Available Spr - Home [address] [place], [address], 08/25/2018 15:13:02 08/25/1908/25/2018 urina lysis , dipst ick Protein negati ve Not Available Spr - Home [address] [place], [address], 08/25/2018 15:13:02 08/25/19 19 08/25/2018 urina lysis , dipst ick Nitrites NEG Not Available Spr - [facility] [address] [place], [address], 08/25/2018 15:13:02 08/25/19 19 08/25/2018 urina lysis , dipst ick Leukocytes NEG Not Available [facility] - [facility] [address] [place], [address], 08/25/2018 15:13:02 Result Notes None recorded. Medical Equipment None Reported. Allergies No known drug allergies Medications Name Sig Start Date Stop Date Status Note LastModified by Organization Details LastModified Time prednisone 10 mg tablet 40 mg PO administered on scene. Time administered : 2018 active Not Available Not Available Not Avai lable citalopram 40 mg tablet active Not Available Not Available Not Available Keflex 500 mg capsule Take 1 capsule every 6 hours by oral route. 2018 active Not Available Not Available Not Avai lable prednisone 20 mg tablet Take 2 tablets every day by oral route. 2018 active Not Available Not Available Not Avai lable valsartan 80 mg tablet active Not Available Not Available Not Available losartan 25 mg tablet active Not Available Not Available No t Available omeprazole 20 mg capsule,del ayed release active Not Available Not Available Not Available oxycodone 5 mg tablet active Not Available Not Available No t Available Xarelto 20 mg tablet active Not Available Not Available No t Available OxyContin 10 mg tablet,may h resistant,e xtended release active Not Available Not Available Not Available Vitals Date Recorded Heart rate Oxygen saturation Oxygen saturation in Arterial blood by Pulse oximetry Body temperature Respiratory rate Systolic blood pressure Diastolic blood pressure Provider Name and Address Organization Details Last Updated DateTime 9 76 /min 99 % 99 % 98.9 [degF] 18 /min 138 mm[Hg] 78 mm[Hg] Not Available [facility] 9 14:58:46 Date Recorded Respiratory rate Body temperature Oxygen saturation Oxygen saturation in Arterial blood by Pulse oximetry Heart rate Systolic blood pressure Diastolic blood pressure Provider Name and Address Organization Details Last Updated DateTime 9 20 /min 98.4 [degF] 97 % 97 % 84 /min 160 mm[Hg] 90 mm[Hg] Not Available [facility] 9 13:53:09 Social History None recorded. Functional Status None recorded. Mental Status None recorded. Family History Nothing Reported. Medical History Condition Response Hypertension Y Gynecological HistoryNo gynecological history recorded. Obstetrics History GPAL:G 0 P 0 0 0 0 Past Encounters Encounter ID Performer Location Encounter Start Date Encounter Closed Date Diagnosis/Indication Diagnosis SNOMED-CT Code Diagnosis ICD10 Code Diagnosis Note [id number] [facility] [address] [place] [address] 08/25/2018 14:46:20 08/25/2018 15:21:45 Dysuria 97418870 R30.0 Cough 93341523 R05 Nasal congestion 0259674 0 R09.81 [id number] [facility] [address] [place] [address] 09/05/2018 13:46:52 09/07/2018 21:44:48 Cellulitis 822000479 L03.90 Allergic reaction 742828 005 T78.40XA Health Concerns Section Related Observation LastModified by Organization Detai ls LastModified Time None Recorded Concern Status LastModified by Organization Details LastModified Time None Recorded Advance Directives Directive None Recorded Payers Encounter Date Sequence Insurance Name Policy Number Policy Gill Covered Member ID Gill Member ID Guarantor Name 08/25/2018 1 [facility] [id number] Ronald Tripp [id number] Genesis Tripp 09/05/2018 1 [facility] [id number] Ronald Tripp [id number] Genesis Josee Notes Date Note Type Note Provider Name and Address Organization Details Recorded Time 08/25/2018 text/html 67 year-old fema álvaro with history of HTN, obesity, recent right shoulder surgery, who called DC to her home for evaluation of cold like symptoms. Pt reports she began having symptoms on Tuesday about 3 days ago. She was having nasal congestion, ear pain, cough, facial fullness. The cough has been constant with occasional yellow sputum. She has not had fevers, nausea, vomiting. There has been no shortness of breath but her nose makes it hard at times. No abdominal pain, pelvic pain or back pain. her right shoulder has been feeling well, no real pain and sling is comfortable for her. AALIYAH ORTEGA NP [address], [place], [address], [place] [facility] 08/27/2018 08:25:43 09/05/2018 text/html 67-year-old female, with a past history of a right reverse shoulder replacement, recent viral URI, was evaluated for complaints of redness and inflammation around her eyes. 2 weeks ago the patient noticed some slight redness to the left eye. She has had some pruritus. Today, the patient noticed redness and swelling to the right eye amd [facility] [employer] [facility] She denies any new products. She has been using clorox wipes given her recent URI. She is unsure if she may have rubbed her eyes after using the wipes. The patient denies any significant pain, vision loss or drainage from the eyes. NGOZI SERRA NP [address], [place], [address], [place] [facility] 09/09/2018 10:07:32 OBGyn Episode No OBEpisode recorded.
--- OUTSIDE RECORDS SUMMARY | 2024-11-22 08:04 | XMS_ITS | Clinical Summary ---
Author Organization [facility] Address [address] [place] [id number] Care Team Providers Care Openstack Developer Name Role Phone Cat Rod MD Primary Care Provider [phone] Allergies Active Allergy Reactions Criticality Noted Date Comments Amoxicillin 11/04/2017 Morphine 06/10/2017 Sulfa Antibiotics 11/04/2017 Medications Medication Sig Dispensed Refills Start Date End Date Status citalopram (CELEXA) 40 MG tablet TAKE 1 TABLET DAILY 0 07/26/2017 Active rivaroxaban (XARELTO) 20 MG TABS tablet Take 20 mg by mouth. 0 10/10/2017 Active valsartan (DIOVAN) tablet 80 mg TAKE 1 TABLET DAILY 0 10/03/2017 Active losartan (COZAAR) tablet 50 mg Take 1 tablet by mouth daily. 0 12/22/2021 Active clindamycin (CLEOCIN) 300 MG capsule Take 2 caps 1 hour prior to dental work 20 capsule 3 01/20/2022 Active Active Problems Problem Noted Date Diagnosed Date Coracoid impingement of right shoulder 8 Chronic right shoulder pain 02/15/2018 It band syndrome, right 02/15/2018 Family History Medical History Relation Name Comments Cancer Father Heart disease Father Hypertension Father Heart disease Mother Hypertension Mother Relation Name Status Comments Father Mother Social History Tobacco Use Types Packs/Day Years Used Date Smoking Tobacco: Never Smokeless Tobacco: Never Alcohol Use Standard Drinks/Week Comments Yes 0 (1 standard drink = 0.6 oz pur e alcohol) social Sex and Gender Information Value Date Recorded Sex Assigned at Not on file Gender Identity Not on file Sexual Orientation Not on file Job Start Date Occupation Industry Not on file Not on file Not on file Last Filed Vital Signs Vital Sign Reading Time Taken Comments Blood Pressure - - Pulse - - Temperature - - Respiratory Rate - - Oxygen Saturation - - Inhaled Oxygen Concentration - - Weight 81.6 kg (180 lb) 01/20/2022 8:21 AM EDT Height 160 cm (5' 3 ) 01/20/2022 8:21 AM EDT Body Mass Index 31.89 01/20/2022 8:21 AM EDT Plan of Treatment Health Maintenance Due Date Last Done Comments Hepatitis C Screening 1950 COVID-19 Vaccine (#1) 05/22/1951 Depression Screening 1962 BMI Counseling 1968 Preventative Health Evaluation 1968 Colon Cancer Screening (Colonoscopy) 11/21/1995 Breast Cancer Screening (Mammogram) 2000 Shingrix-Zoster Vaccine (1 of 2) 2000 Fall Risk Assessment 11/21/2015 Osteoporosis Screening (DEXA Scan) 11/21/2015 DTap / Tdap / Td (2 - Td or Tdap) 09/06/2022 09/06/2012, 06/05/2002, 06/05/2002 Influenza Vaccine (#1) 2024 , 05/27/2020, 08/08/2019, Additional history exists RSV Adult > 60+ Yrs or (1 - 1-dose 75+ series) 2025 Pneumococcal Vaccine Completed 11/04/2017, 03/25/20 16 Hepatitis B Vaccines Aged Out No long er eligible based on patient's age to complete this topic RSV Ped < 20 months Aged Out No longe r eligible based on patient's age to complete this topic Care Teams Openstack Developer Relationship Specialty Start Date End Date Cat Rod MD [address] [address] [place] [address] PCP - General Family Medicine 02/02/18
== END 2024-11-22 08:20 | disposition home or self-care (01) ==
LOC: HO.HOS 07:57
PROVIDERS: PCP Family Medicine; Visit Provider Orthopaedic Surgery
DX: M17.12 Unilateral primary osteoarthritis, left knee (principal)
CPT/HCPCS: 99213; G2211

== ENCOUNTER → 2024-11-22 07:59 | Outpatient (BNV) | payer MEDICARE, SELFPAY | PROVIDERS: Visit Provider Radiology Diagnostic Radiology | DX: M25.561 Pain in right knee (principal); M25.562 Pain in left knee; Z96.651 Presence of right artificial knee joint | CPT/HCPCS: 73562 ==

== ENCOUNTER 2024-11-22 08:13 | Outpatient (REF) | payer MEDICARE, SELFPAY ==
--- NOTE | ~2024-11-22 | XR_ITS ---
XR KNEE RICHARD 3V HISTORY: Bilateral knee pain. COMPARISON: No priors. TECHNIQUE: AP, lateral, and patellofemoral views of both knees. FINDINGS: RIGHT KNEE: There has been a total right knee arthroplasty. Tibial and femoral components appear intact, well seated, in anatomic alignment. There has been associated patellar resurfacing. There is no periprosthetic fracture or evidence of loosening/complication. Normal patellar alignment. No evidence of joint effusion. Soft tissues appear normal. LEFT KNEE: No fracture, dislocation, or suspicious bone lesion. There is moderate lateral compartment and mild medial and patellofemoral compartment joint space narrowing and arthritis present. There is minimal result in valgus angulation of the knee joint. There is chondrocalcinosis in the medial and lateral compartments suggesting CPPD. Normal patellar alignment. No abnormal patellar tilt. No evidence of joint effusion. Soft tissues appear normal. XR/XR Knee Richard 3V IMPRESSION: LEFT KNEE: 1. No acute bony abnormalities. No joint effusion. 2. Moderate lateral compartment, and mild medial and patellofemoral compartment arthritis. 3. Diffuse chondrocalcinosis suggesting CPPD. RIGHT KNEE: 1. No acute bony abnormalities. No joint effusion. 2. Total right knee arthroplasty without complication evident. Electronically signed by: Brigido Marquez MD 11/23/2024 09:20 AM EDT
--- OUTSIDE RECORDS SUMMARY | 2024-11-23 08:22 | XMS_ITS | Data Portability ---
Author Organization [place] - Counts include 234 beds at the [facility] Address [address] [place] [address] Care Team Providers Care Seconds Grader Name Role Phone RAYNE FIGUEROA Primary Care Provider Assessment Encounter Date Assessment Date Assessment LastModified [...] y: 67-year-old female who is known to [employer] [facility], with a past medical history that includes [...] recorded. Lab culture, urine - Collected by [facility] lizzy 2018 019 [facility] (Centralized Electronic Ordering - All Locations), Patient Can Go To The Location Of Their Choice, [id number] 9 07:37:26 urinalysis , dipstick 2018 [facility] - Home, [address] [place], [address], 9 09:46:22 Referral None recorded. Procedures None recorded. Surgeries None recorded. Imaging None recorded. Medication Orders prednisone 20 mg tablet 2018 [facility], [address] [place], [address], 9 13:59:04 prednisone 10 mg tablet 2018 [email or web address] Not available 9 08:06:46 Keflex 500 mg capsule 2018 [facility], [address] [place], [address], 9 13:59:04 Patient TargetsNo targets recorded. Patient Instructions Encounter Date Encounter Id Patient Instructions Last Modified By Organization Details Last Modified Time 08/25/2018 [id number] We came to your home for evaluation [...] Ortega NP Not available 08/27/2018 08:25:39 09/05/2018 [id number] allergic reactio n: care instructions Not available 09/05/2018 14:11:44 Take Zyrtec or Clariten daily. Use Benadryl at night as needed for itching. Take the prednisone with food daily. Take the prescribed antibiotic and also use a probiotic while taking antibiotics. Thank you for your visit with [email or web address] today. We cannot always find the exact [...] in your condition between 8am-10pm, please call [email or web address] at [phone] to help navigate your care. Please seek [...] in your condition between 8am-10pm, please call [email or web address] at [phone] to help navigate your care. Not available [...] Go To The Location Of Their Choice, [id number] 08/27/2018 07:37:26 08/25/1908/26/2018 cultu re, urine culture NO GROWTH Not Available [facility] (Centralized Electronic Ordering - All Locations) Patient Can Go To The Location Of Their Choice, 08/27/2018 07:37:26 08/25/19 19 08/27/2018 cultu re, urine report status FINAL 2018 Not Available [facility] (Centralized Electronic Ordering - All Locations) Patient Can Go To The Location Of Their Choice, [id number] 08/27/2018 07:37:26 08/25/19 19 08/25/2018 urina lysis , dipst ick Appearance clear Not Available Spr - H ome [address] [place], [address], 08/25/2018 15:13:02 08/25/1908/25/2018 urina lysis , dipst ick Color yellow Not Available Spr - Home [address] [place], [address], 08/25/2018 15:13:02 08/25/1908/25/2018 urina lysis , dipst ick Glucose negati ve Not Available Spr - Home [address] [place], [address], 08/25/2018 15:13:02 08/25/1908/25/2018 urina lysis , dipst ick Bilirubin negati ve Not Available Spr - Home [address] [place], [address], 08/25/2018 15:13:02 08/25/1908/25/2018 urina lysis , dipst ick Ketones NEG Not Available Spr - Home [address] [place], [address], 08/25/2018 15:13:02 08/25/1908/25/2018 urina lysis , dipst ick Blood + Not Available Spr - Home [address] [place], [address], 08/25/2018 15:13:02 08/25/1908/25/2018 urina lysis , dipst ick Protein negati ve Not Available Spr - Home [address] [place], [address], 08/25/2018 15:13:02 08/25/19 19 08/25/2018 urina lysis , dipst ick Nitrites NEG Not Available Spr - Sorin e [address] [place], [address], 08/25/2018 15:13:02 08/25/19 19 08/25/2018 urina lysis , dipst ick Leukocytes NEG Not Available Spr - H ome [address] [place], [address], 08/25/2018 15:13:02 Result Notes None recorded. Medical [...] SNOMED-CT Code Diagnosis ICD10 Code Diagnosis Note [id number] [facility] - HOME [address] [place] [address] 08/25/2018 14:46:20 08/25/2018 15:21:45 Dysuria 63603961 R30.0 Cough 82320985 R05 Nasal congestion 2698997 0 R09.81 [id number] [facility] - HOME [address] [place] [address] 09/05/2018 13:46:52 09/07/2018 21:44:48 Cellulitis 196601476 L03.90 Allergic reaction 056058 005 T78.40XA Health Concerns Section Related Observation LastModified by Organization Detai ls LastModified Time None Recorded Concern Status LastModified by Organization Details LastModified Time None Recorded Advance Directives Directive None Recorded Payers Encounter Date Sequence Insurance Name Policy Number Policy Gill Covered Member ID Gill Member ID Guarantor Name 08/25/2018 1 [facility] [id number] Ronald Tripp [id number] Genesis Tripp 09/05/2018 1 [facility] [id number] Ronald Tripp [id number] Genesis Josee Notes Date Note Type [...] her. AALIYAH ORTEGA NP [address], [place], [address], [place] [facility] 08/27/2018 08:25:43 09/05/2018 text/html [...] swelling to the right eye amd [facility]. She denies any new products. She has been using clorox wipes given her recent URI. She is unsure if she may have rubbed her eyes after using the wipes. The patient denies any significant pain, vision loss or drainage from the eyes. NGOZI SERRA NP [address], [place], [address], [place] [facility] 09/09/2018 10:07:32 OBGyn Episode No OBEpisode recorded.
--- OUTSIDE RECORDS SUMMARY | 2024-11-23 08:23 | XMS_ITS | Clinical Summary ---
Author Organization [facility] Address [address] [place] [address] Care Team Providers Care Stummel Selector Name Role Phone Cat Rod MD Primary Care Provider [phone] Allergies Active Allergy Reactions Criticality Noted Date [...] age to complete this topic Care Teams Stummel Selector Relationship Specialty Start Date End Date Cat Rod MD [address] [address] [place] [address] PCP - General Family Medicine 02/02/18
== END 2024-11-22 08:14 | disposition home or self-care (01) ==
LOC: HO.HOSX 08:13
PROVIDERS: Visit Provider Orthopaedic Surgery
DX: M25.561 Pain in right knee (principal); M17.12 Unilateral primary osteoarthritis, left knee
CPT/HCPCS: 73562; 99212

== ENCOUNTER 2024-12-27 14:55 | Outpatient (AMB) | payer MEDICARE, SELFPAY ==
--- NOTE | 2024-12-27 15:11 | MHC.OFFVIS ---
Vital Signs 12/27/24 15:12 Height 5 ft 3 in Weight 188 lb BMI 33.3 Intake Visit Reasons: Inj- Left Knee Euflexxa #1 Intake Note: Genesis is a 74 year old female who presents today for her first dose of her left knee Euflexxa gel injection. She describes her left knee pain as sharp in nature. She has undergone right total knee replacement surgery in the past. She reports minimal discomfort in her right knee. She describes her left knee pain as sharp in nature. She has tried Tylenol and anti-inflammatory medicines which gave her minimal relief. She wishes to hold off on left total knee replacement surgery for as long as possible. She has tried physical therapy exercises which aggravated her pain. Allergies No Known Allergies Allergy (Verified 12/27/24 15:18) Medication List - Last Reconciled 12/28/24 by Noe Pathak MD acetaminophen (Tylenol) 650 mg PO BEDTIME PRN losartan 50 mg PO DAILY melatonin 3 mg PO BEDTIME PRN PFSH Medical History Grade I diastolic dysfunction Left atrial dilation GERD (gastroesophageal reflux disease) Left ventricular hypertrophy Sleep apnea with use of continuous positive airway pressure (CPAP) Atrial fibrillation Arthritis Back pain GERD (gastroesophageal reflux disease) SALVADOR on CPAP Atrial fibrillation Hypertension Depression Obesity Surgical History History of sleeve gastrectomy S/P laparoscopic sleeve gastrectomy History of uvulopalatopharyngoplasty Hx of colonoscopy S/P laparoscopic cholecystectomy Status post replacement of right shoulder joint Status post right knee replacement Family History Father CHF (congestive heart failure) Heart attack Mother CHF (congestive heart failure) DM (diabetes mellitus) Brother No problems noted. Son No problems noted. Son No problems noted. Social History Do you presently have visiting nurse or other home services: No Alcohol intake: current service: No Current occupational status: retired Physical Exam Vital Signs: BMI result Body Mass Index 33.3 Const Other: Well-nourished well-developed very friendly female awake alert and oriented x3 in no acute distress Extrem Other: Bilateral lower extremity examination shows good capillary refill, no skin lesions noted, normal sensation light touch Left knee examination shows a minimal effusion, palpable crepitus with range of motion, pain with range of motion, no instability Office Procedures AMB Joint Injection/Aspiration Joint Injection/Aspiration Primary Site: left knee Prep: site was prepped using aseptic technique Injected: 20 mg of (Euflexxa viscosupplementation) and 1% plain lidocaine Procedure: The patient tolerated the procedure well Coding 90081 - Large joint Procedure code (CPT) selection complete Results Reviewed Results Reviewed: X-rays of the patient's left knee taken previously show joint space narrowing, subchondral sclerosis, no acute bony abnormalities Assessment & Plan Assessment & Plan (1) Osteoarthritis of left knee: Code(s): M17.12 - Unilateral primary osteoarthritis, left knee Category: Medical Plan Ms. Tripp presents with progressively worsening left knee pain due to osteoarthritis. The risks and benefits of a series of 3 Euflexxa viscosupplementation injections were discussed at length with the patient. The patient wishes to proceed. She tolerated the 1st injection well. She will continue with her home exercise program. She will follow up next week as scheduled. I spent 21 minutes in reviewing the patient's records and imaging studies, seeing the patient and documenting in the medical record. Orders: Orders AMB Joint Injection/Aspiration 12/27/24 M17.12 - Unilateral primary osteoarthritis, left knee Coding Level of Care Code Est Pt Level 3 (50183) Complex EM visit Add On G2211 Diagnoses Osteoarthritis of left knee M17.12 CPT Codes Coding - 06646 Large joint: 75423 - Large joint ([id number])
[2024-12-27 15:12] VITALS: BMI 33.3
== END 2024-12-27 16:39 | disposition home or self-care (01) ==
LOC: HO.HOS 14:56
PROVIDERS: Visit Provider Orthopaedic Surgery
DX: M17.12 Unilateral primary osteoarthritis, left knee (principal)
CPT/HCPCS: 20610; 99213

== ENCOUNTER → 2024-12-27 14:55 | Outpatient (BNVA) | payer MEDICARE, SELFPAY | PROVIDERS: Visit Provider Orthopaedic Surgery | DX: M17.12 Unilateral primary osteoarthritis, left knee (principal) | CPT/HCPCS: 20610; 99212; J2003; J7323 ==

== ENCOUNTER 2025-01-03 14:31 | Outpatient (AMB) | payer MEDICARE, SELFPAY ==
--- NOTE | 2025-01-03 14:36 | MHC.OFFVIS ---
Vital Signs 01/03/25 14:37 Height 5 ft 3 in Weight 188 lb BMI 33.3 Intake Visit Reasons: Inj- Left Knee Euflexxa #2 Intake Note: Genesis is a 74 year old female who presents today for her second those of left knee Euflexxa gel injection. She continues with her home exercise program. She does take Tylenol as needed for her discomfort. Allergies No Known Allergies Allergy (Verified 12/27/24 15:18) Medication List - Last Reconciled 01/04/25 by Noe Pathak MD acetaminophen (Tylenol) 650 mg PO BEDTIME PRN losartan 50 mg PO DAILY melatonin 3 mg PO BEDTIME PRN PFSH Medical History Grade I diastolic dysfunction Left atrial dilation GERD (gastroesophageal reflux disease) Left ventricular hypertrophy Sleep apnea with use of continuous positive airway pressure (CPAP) Atrial fibrillation Arthritis Back pain GERD (gastroesophageal reflux disease) SALVADOR on CPAP Atrial fibrillation Hypertension Depression Obesity Surgical History History of sleeve gastrectomy S/P laparoscopic sleeve gastrectomy History of uvulopalatopharyngoplasty Hx of colonoscopy S/P laparoscopic cholecystectomy Status post replacement of right shoulder joint Status post right knee replacement Family History Father CHF (congestive heart failure) Heart attack Mother CHF (congestive heart failure) DM (diabetes mellitus) Brother No problems noted. Son No problems noted. Son No problems noted. Social History Do you presently have visiting nurse or other home services: No Alcohol intake: current service: No Current occupational status: retired Physical Exam Vital Signs: BMI result Body Mass Index 33.3 Extrem Other: Left knee examination shows a minimal effusion, palpable crepitus with range of motion, pain with range of motion, no instability Office Procedures AMB Joint Injection/Aspiration Joint Injection/Aspiration Primary Site: left knee Prep: site was prepped using aseptic technique Injected: 20 mg of (Euflexxa viscosupplementation) and 1% plain lidocaine Procedure: The patient tolerated the procedure well Coding 42170 - Large joint Procedure code (CPT) selection complete Results Reviewed Results Reviewed: X-rays of the patient's left knee show joint space narrowing, subchondral sclerosis, no acute bony abnormalities Assessment & Plan Assessment & Plan (1) Osteoarthritis of left knee: Code(s): M17.12 - Unilateral primary osteoarthritis, left knee Category: Medical Plan Ms. Tripp presents with left knee pain due to osteoarthritis. The risks and benefits of a 2nd Euflexxa viscosupplementation injection were discussed at length with the patient. The patient wished to proceed. She tolerated the injection well. She will continue with her home exercise program. She will follow up next week as scheduled. Orders: Orders AMB Joint Injection/Aspiration 01/03/25 M17.12 - Unilateral primary osteoarthritis, left knee Coding Level of Care Code Procedure Only Diagnoses Osteoarthritis of left knee M17.12 CPT Codes Coding - 38292 Large joint: 07409 - Large joint ([id number])
[2025-01-03 14:37] VITALS: BMI 33.3
--- OUTSIDE RECORDS SUMMARY | 2025-01-03 17:05 | XMS_ITS | Data Portability ---
Author Organization [place] - [facility] Address [address] [place] [address] Care Team Providers Care Outreach Assistant Name Role Phone RAYNE FIGUEROA Primary Care Provider [phone] Assessment Encounter Date Assessment Date Assessment LastModified [...] y: 67-year-old female who is known to [email or web address] [facility], with a past medical history that includes [...] recorded. Lab culture, urine - Collected by [facility] lizzy 2018 019 [facility] (Centralized Electronic Ordering - All Locations), Patient Can Go To The Location Of Their Choice, [address] 9 07:37:26 urinalysis , dipstick 2018 [facility] - Home, [address] [place], [address], 9 09:46:22 Referral None recorded. Procedures None recorded. Surgeries None recorded. Imaging None recorded. Medication Orders prednisone 20 mg tablet 2018 [facility], [address] [place], [address], 9 13:59:04 prednisone 10 mg tablet 2018 [email or web address] Not available 9 08:06:46 Keflex 500 mg capsule 2018 [facility], [address] [place], [address], 9 13:59:04 Patient TargetsNo targets recorded. Patient Instructions Encounter Date Encounter Id Patient Instructions Last Modified By Organization Details Last Modified Time 08/25/2018 [id number] We came to your home for evaluation [...] understands to call for any concerns. - Ina Ortega NP Not available 08/27/2018 08:25:39 09/05/2018 [id number] allergic reactio n: care instructions Not available 09/05/2018 14:11:44 Take Zyrtec or Clariten daily. Use Benadryl at night as needed for itching. Take the prednisone with food daily. Take the prescribed antibiotic and also use a probiotic while taking antibiotics. Thank you for your visit with [email or web address] today. We cannot always find the exact [...] in your condition between 8am-10pm, please call [email or web address] at [phone] to help navigate your care. Please seek [...] in your condition between 8am-10pm, please call [email or web address] at [phone] to help navigate your care. Not available [...] Go To The Location Of Their Choice, [id number] 08/27/2018 07:37:26 08/25/1908/26/2018 cultu re, urine culture NO GROWTH Not Available [facility] (Centralized Electronic Ordering - All Locations) Patient Can Go To The Location Of Their Choice, 08/27/2018 07:37:26 08/25/19 19 08/27/2018 cultu re, urine report status FINAL 2018 Not Available [facility] (Centralized Electronic Ordering - All Locations) Patient Can Go To The Location Of Their Choice, [id number] 08/27/2018 07:37:26 08/25/19 19 08/25/2018 urina lysis , dipst ick Appearance clear Not Available Spr - H ome [address] [place], [address], 08/25/2018 15:13:02 08/25/1908/25/2018 urina lysis , dipst ick Color yellow Not Available Spr - Home [address] [place], [address], 08/25/2018 15:13:02 08/25/1908/25/2018 urina lysis , dipst ick Glucose negati ve Not Available Spr - Home [address] [place], [address], 08/25/2018 15:13:02 08/25/1908/25/2018 urina lysis , dipst ick Bilirubin negati ve Not Available Spr - Home [address] [place], [address], 08/25/2018 15:13:02 08/25/1908/25/2018 urina lysis , dipst ick Ketones NEG Not Available Spr - Home [address] [place], [address], 08/25/2018 15:13:02 08/25/1908/25/2018 urina lysis , dipst ick Blood + Not Available Spr - Home [address] [place], [address], 08/25/2018 15:13:02 08/25/1908/25/2018 urina lysis , dipst ick Protein negati ve Not Available Spr - Home [address] [place], [address], 08/25/2018 15:13:02 08/25/19 19 08/25/2018 urina lysis , dipst ick Nitrites NEG Not Available Spr - Sorin [facility] [address] [place], [address], 08/25/2018 15:13:02 08/25/19 19 08/25/2018 urina lysis , dipst ick Leukocytes NEG Not Available Spr - H ome [address] [place], [address], 08/25/2018 15:13:02 Result Notes None recorded. Medical [...] SNOMED-CT Code Diagnosis ICD10 Code Diagnosis Note [id number] [facility] - HOME [address] [place] [address] 08/25/2018 14:46:20 08/25/2018 15:21:45 Dysuria 98677601 R30.0 Cough 38733249 R05 Nasal congestion 0979936 0 R09.81 [id number] NGOZI [facility]IE [facility] - HOME [address] [place] [address] 09/05/2018 13:46:52 09/07/2018 21:44:48 Cellulitis 831170948 L03.90 Allergic reaction 879474 005 T78.40XA Health Concerns Section Related Observation LastModified by Organization Detai ls LastModified Time None Recorded Concern Status LastModified by Organization Details LastModified Time None Recorded Advance Directives Directive None Recorded Payers Insurance Date Sequence Insurance Name Policy Number Policy Gill Covered Member ID Gill Member ID Guarantor Name 08/25/2018 1 SHAYY Tripp [id number] Genesis Tripp 08/25/2018 1 *SELF PAY* Genesis Tripp [id number] Genesis Tripp 09/15/2018 1 [employer] [id number] Ronald Tripp [id number] Genesis Tripp Notes Date Note Type Note Provider Name [...] pain and sling is comfortable for her. INA ORTEGA NP [address], [place], [address], [place] [facility] 08/27/2018 08:25:43 09/05/2018 text/html 67-year-old female, with a past history of a right reverse shoulder replacement, recent viral URI, was evaluated for complaints of redness and inflammation around her eyes. 2 weeks ago the patient noticed some slight redness to the left eye. She has had some pruritus. Today, the patient noticed redness and swelling to the right eye [facility]d [facility]. She denies any new products. She has been using clorox wipes given her recent URI. She is unsure if she may have rubbed her eyes after using the wipes. The patient denies any significant pain, vision loss or drainage from the eyes. NGOZI SERRA NP [address], [place], [address], [place] [facility] 09/09/2018 10:07:32 OBGyn Episode No OBEpisode recorded.
== END 2025-01-03 14:58 | disposition home or self-care (01) ==
LOC: HO.HOS 14:32
PROVIDERS: Visit Provider Orthopaedic Surgery
DX: M17.12 Unilateral primary osteoarthritis, left knee (principal)
CPT/HCPCS: 20610

== ENCOUNTER → 2025-01-03 14:31 | Outpatient (BNVA) | payer MEDICARE, SELFPAY | PROVIDERS: Visit Provider Orthopaedic Surgery | DX: M17.12 Unilateral primary osteoarthritis, left knee (principal) | CPT/HCPCS: 20610; J2003; J7323 ==

== ENCOUNTER 2025-01-08 09:58 | Outpatient (AMB) | payer MEDICARE, SELFPAY ==
[2025-01-08 10:01] VITALS: BMI 33.3
--- NOTE | 2025-01-08 10:01 | A.OFFVIS_ITS ---
Vital Signs 01/08/25 10:01 Height 5 ft 3 in Weight 188 lb BMI 33.3 Intake Visit Reasons: Inj- Left Knee Euflexxa #3 Intake Note: Genesis is a 74 year old female who presents today for her third dose of her left knee Euflexxa gel injections. The patient states that she has gotten fairly good relief from the 1st 2 injections. She continues with her home exercise program. Allergies No Known Allergies Allergy (Verified 01/08/25 10:02) Medication List - Last Reconciled 01/08/25 by Noe Pathak MD acetaminophen (Tylenol) 650 mg PO BEDTIME PRN losartan 50 mg PO DAILY melatonin 3 mg PO BEDTIME PRN PFSH Medical History Grade I diastolic dysfunction Left atrial dilation GERD (gastroesophageal reflux disease) Left ventricular hypertrophy Sleep apnea with use of continuous positive airway pressure (CPAP) Atrial fibrillation Arthritis Back pain GERD (gastroesophageal reflux disease) SALVADOR on CPAP Atrial fibrillation Hypertension Depression Obesity Surgical History History of sleeve gastrectomy S/P laparoscopic sleeve gastrectomy History of uvulopalatopharyngoplasty Hx of colonoscopy S/P laparoscopic cholecystectomy Status post replacement of right shoulder joint Status post right knee replacement Family History Father CHF (congestive heart failure) Heart attack Mother CHF (congestive heart failure) DM (diabetes mellitus) Brother No problems noted. Son No problems noted. Son No problems noted. Social History Do you presently have visiting nurse or other home services: No Alcohol intake: current service: No Current occupational status: retired Physical Exam Vital Signs: BMI result Body Mass Index 33.3 Const Other: Well-nourished well-developed very friendly female awake alert and oriented x3 in no acute distress Extrem Other: Left knee examination shows a minimal effusion, palpable crepitus with range of motion, pain with range of motion, no instability Office Procedures AMB Joint Injection/Aspiration Joint Injection/Aspiration Primary Site: left knee Prep: site was prepped using aseptic technique Injected: 20 mg of (Euflexxa viscosupplementation) and 1% plain lidocaine Procedure: The patient tolerated the procedure well Coding 92963 - Large joint Procedure code (CPT) selection complete Results Reviewed Results Reviewed: X-rays of the patient's left knee show joint space narrowing, subchondral sclerosis, no acute bony abnormalities Assessment & Plan Assessment & Plan (1) Osteoarthritis of left knee: Code(s): M17.12 - Unilateral primary osteoarthritis, left knee Category: Medical Plan Genesis presents with left knee pain due to osteoarthritis. The risks and benefits of a 3rd Euflexxa viscosupplementation injection were discussed at length with the patient. The patient wished to proceed. The patient tolerated the injection well. She will continue with her home exercise program. She will contact me prior to her follow-up appointment in 3 months should any questions o r concerns arise. Feel free to call me at any time should questions regarding her orthopedic management arise. Orders: Orders AMB Joint Injection/Aspiration Today M17.12 - Unilateral primary osteoarthritis, left knee Coding Level of Care Code Procedure Only Diagnoses Osteoarthritis of left knee M17.12 CPT Codes Coding - 18932 Large joint: 46360 - Large joint ([id number])
--- OUTSIDE RECORDS SUMMARY | 2025-01-08 11:16 | XMS_ITS | Data Portability ---
Author Organization [place] - [facility] Address [address] [place] [address] Care Team Providers Care Lead Shop Operator Name Role Phone RAYNE FIGUEROA Primary Care [...] y: 67-year-old female who is known to [facility], with a past medical history that includes [...] recorded. Lab culture, urine - Collected by [facility] [email or web address] 2018 019 [facility] (Centralized Electronic Ordering - All Locations), Patient Can Go To The Location Of Their Choice, [id number] 9 07:37:26 urinalysis , dipstick 2018 [facility], [address] [place], [address], 9 09:46:22 Referral None recorded. Procedures None recorded. Surgeries None recorded. Imaging None recorded. Medication Orders prednisone 20 mg tablet 2018 [id number], [address] [place], [address], 9 13:59:04 prednisone 10 mg tablet 2018 [email or web address] Not available 9 08:06:46 Keflex 500 mg capsule 2018 [id number], [address] [place], [address], 9 13:59:04 Patient TargetsNo targets recorded. Patient Instructions Encounter Date Encounter Id Patient Instructions Last Modified By Organization Details Last Modified Time 08/25/2018 [id number] We came to your home for evaluation [...] Ortega NP Not available 08/27/2018 08:25:39 09/05/2018 [id number] allergic reactio n: care instructions Not available 09/05/2018 14:11:44 Take Zyrtec or Clariten daily. Use Benadryl at night as needed for itching. Take the prednisone with food daily. Take the prescribed antibiotic and also use a probiotic while taking antibiotics. Thank you for your visit with [facility] today. We cannot always find the exact [...] in your condition between 8am-10pm, please call [facility] at [phone] to help navigate your care. Please seek [...] in your condition between 8am-10pm, please call [facility] at [phone] to help navigate your care. Not available [...] Go To The Location Of Their Choice, [id number] 08/27/2018 07:37:26 08/25/1908/26/2018 cultu re, urine culture NO GROWTH Not Available [facility] (Centralized Electronic Ordering - All Locations) Patient Can Go To The Location Of Their Choice, 08/27/2018 07:37:26 08/25/19 19 08/27/2018 cultu re, urine report status FINAL 2018 Not Available [facility] (Centralized Electronic Ordering - All Locations) Patient Can Go To The Location Of Their Choice, [id number] 08/27/2018 07:37:26 08/25/19 19 08/25/2018 urina lysis , dipst ick Appearance clear Not Available Spr - H ome [address] [place], [address], 08/25/2018 15:13:02 08/25/1908/25/2018 urina lysis , dipst ick Color yellow Not Available Spr - Home [address] [place], [address], 08/25/2018 15:13:02 08/25/1908/25/2018 urina lysis , dipst ick Glucose negati ve Not Available Spr - Home [address] [place], [address], 08/25/2018 15:13:02 08/25/1908/25/2018 urina lysis , dipst ick Bilirubin negati ve Not Available Spr - Home [address] [place], [address], 08/25/2018 15:13:02 08/25/1908/25/2018 urina lysis , dipst ick Ketones NEG Not Available Spr - Home [address] [place], [address], 08/25/2018 15:13:02 08/25/1908/25/2018 urina lysis , dipst ick Blood + Not Available Spr - Home [address] [place], [address], 08/25/2018 15:13:02 08/25/1908/25/2018 urina lysis , dipst ick Protein negati ve Not Available Spr - Home [address] [place], [address], 08/25/2018 15:13:02 08/25/19 19 08/25/2018 urina lysis , dipst ick Nitrites NEG Not Available Spr - Sorin [facility] [address] [place], [address], 08/25/2018 15:13:02 08/25/19 19 08/25/2018 urina lysis , dipst ick Leukocytes NEG Not Available Spr - H ome [address] [place], [address], 08/25/2018 15:13:02 Result Notes None recorded. Medical [...] SNOMED-CT Code Diagnosis ICD10 Code Diagnosis Note [id number] [facility] [address] [place] [address] 08/25/2018 14:46:20 08/25/2018 15:21:45 Dysuria 59607099 R30.0 Cough 39093960 R05 Nasal congestion 4495450 0 R09.81 [id number] NGOZI [facility]ALLIE [facility] [address] [place] [address] 09/05/2018 13:46:52 09/07/2018 21:44:48 Cellulitis 985213774 L03.90 Allergic reaction 940244 005 T78.40XA Health Concerns Section Related Observation LastModified by Organization Detai ls LastModified Time None Recorded Concern Status LastModified by Organization Details LastModified Time None Recorded Advance Directives Directive None Recorded Payers Insurance Date Sequence Insurance Name Policy Number Policy Gill Covered Member ID Gill Member ID Guarantor Name 08/25/2018 1 SHAYY Tripp [id number] Genesis Tripp 08/25/2018 1 *SELF PAY* Genesis Tripp [id number] Genesis Tripp 09/15/2018 1 PETERSON [id number] Ronald Tripp [id number] Genesis Tripp Notes Date Note Type [...] her. INA ORTEGA NP [address], [place], [address], [place] [facility] 08/27/2018 08:25:43 09/05/2018 text/html 67-year-old female, with a past history of a right reverse shoulder replacement, recent viral URI, was evaluated for complaints of redness and inflammation around her eyes. 2 weeks ago the patient noticed some slight redness to the left eye. She has had some pruritus. Today, the patient noticed redness and swelling to the right eye [facility]d [facility] She denies any new products. She has been using clorox wipes given her recent URI. She is unsure if she may have rubbed her eyes after using the wipes. The patient denies any significant pain, vision loss or drainage from the eyes. NGOZI SERRA NP [address], [place], [address], [place] [facility] 09/09/2018 10:07:32 OBGyn Episode No OBEpisode recorded.
== END 2025-01-08 10:30 | disposition home or self-care (01) ==
LOC: HO.HOS 09:59
PROVIDERS: Visit Provider Orthopaedic Surgery
DX: M17.12 Unilateral primary osteoarthritis, left knee (principal)
CPT/HCPCS: 20610

== ENCOUNTER → 2025-01-08 09:58 | Outpatient (BNVA) | payer MEDICARE, SELFPAY | PROVIDERS: Visit Provider Orthopaedic Surgery | DX: M17.12 Unilateral primary osteoarthritis, left knee (principal) | CPT/HCPCS: 20610; J2003; J7323 ==

== ENCOUNTER 2025-04-10 11:05 | Outpatient (AMB) | payer MEDICARE, SELFPAY ==
--- OUTSIDE RECORDS SUMMARY | 2019-07-31 18:49 | XMS_ITS | Encounter Summary ---
Author Organization [facility] Address [address] [place] [phone] Phone Care Team Providers Care Meteorological Aide Name Role Phone Cat Rod MD Primary Care Provider [phone] Kristin Bear EMT/DISPATCHER Unavailable Jett Pagan DO Unavailable Arnulfo Fiorella Eloise DO Unavailable Cinthia Pa EMT/DISPATCHER Unavailable Ted Kamara MD Unavailable Marina Diamond PLEASURE CRAFT SAILOR Unavailable Sherita Reese EMT/DISPATCHER Unavailable Andi Merida MD Unavailable [phone] Avila Granger DPM Unavailable Unavailable Cat Rod MD Unavailable Rafiq Dolan MD Unavailable Lacey Rojas MD Unavailable Juancarlos Og MD Unavailable Isaac Swift MD Unavailable Sukhdeep Zepeda MD Unavailable [phone] Cat Rod MD Unavailable Encounter Details Date Type Department Care Team (Late st Contact Info) Description 07/31/2019 5:49 PM EST Hospital Encounter [facility] [address] [place] [id number] Bharti Sagastume CNP 12 [facility] [place] [address] Social History Tobacco Use Types Packs/Day Years Used Date Smoking Tobacco: Never Smokeless Tobacco: Never Alcohol Use Standard Drinks/Week Comments Yes 0 (1 standard drink = 0.6 oz pur e alcohol) occasionally Child or Family Care Answer Date Record ed Do you have problems with on e of the following making it difficult for you to work, study, or receive health care? No 06/24/2021 Education Answer Date Recorded Are you interested in more education? Not on tracee e 07/05/2023 Are you concerned about learning? Not on file 07/05/2023 No 07/05/2023 No 07/05/2023 Food Answer Date Recorded Within the past 6 months we worried whether our food would run out before we got money to buy more. Never True 06/24/2021 Within the past 6 months the food we bought just didn't last and we didn't have enough money to get more. Never True Residential Stability Answer Date Recor ded What is your housing situation today? I have carina sing 06/24/2021 How many times have you move d in the past 12 months? Zero (I did not move) 06/24/2021 Paying for Meds Answer Date Recorded Do you have trouble paying for medicines? No 06/24/2021 Paying Utility Bills Answer Date Record ed Do you have trouble paying your heating or elect ricity bill? No 06/24/2021 Transportation Answer Date Recorded Has the lack of transportati on kept you from medical appointments or from getting medications? No 06/24/2021 Unemployment Answer Date Recorded Are you currently unemployed or working on a part-time or temporary basis, and looking for work? No 06/24/2021 Digital Access Answer Date Recorded No 12/20/2022 No 12/20/2022 Reliable internet access at home? Not on file 12/20/2022 Device with a working camera? Not on file Intimate Partner Violence Answer Date R ecorded Are you denied basic needs s uch as food, clothing, or medical care? No 12/27/2023 In the past 12 months have y ou been in a relationship with a person who hurts, threatens, or tries to control you? No 12/27/2023 Are you denied basic needs s uch as food, clothing, or medical care? No 12/27/2023 In the past 12 months have y ou been in a relationship with a person who hurts, threatens, or tries to control you? No 12/27/2023 Comments No Sex and Gender Information Value Date Recorded Sex Assigned at Female 07/03/2018 4:27 PM EST Legal Sex Female 10:01 PM EDT Gender Identity Female 07/03/2018 4:27 PM EST Sexual Orientation Straight 07/03/2018 4: 27 PM EST documented as of this encounter Functional Status * Calculated C-SSRS Risk Score (Lifetime/Recent) Answer Date of Assessment Author No Risk Indicated 12/24/2023 1:58 PM EDT Inge Walker RN * Butts Suicide Severity Rating Scale (Screener/Recent Self-Report) Question Answer Date of Assessment Author 1. Wish to be (Past 1 Month) No 024 1:58 PM EDT Inge Walker, PUJA 2. Non-Specific Active Suici yael Thoughts (Past 1 Month) No 12/24/2023 1:58 PM EDT Inge Walker , PUJA 6. Suicidal Behavior (Lifetime) No 1:58 PM EDT Inge Walker, PUJA documented as of this encounter Plan of Treatment Upcoming Encounters Date Type Department Care Team (Late st Contact Info) Description 02/19/2025 Procedure Pass [facility] [address] [place] [address] 08/28/2025 11:30 AM EST Office Visit [facility] Medicine [address] [place] [address] Alejandra Barfield MD [address] [facility], [address] [place] [address] 10/03/2025 10:00 AM EDT Office Visit [facility] [address] [facility] 3rd Floor, [address] [place] [address] Samuel Lo MD [address] [facility], [address] [place] [address] [email or web address] 10/04/2025 12:30 PM EDT Appointment [address] [address] Haleigh Perla MD [address] [place] [address], [address] [place], [place] [phone] [email or web address] documented as of this encounter Procedures Procedure Name Priority Date/Time Associated Diagnosis Comments XR WRIST 3 OR MORE VIEWS (RIGHT) Urgent/patient waiting 07/31/2019 5:59 PM EST Fall as cause of accidental injury in home as place of occurrence, initial encounter Acute pain of right wrist documented in this encounter Results * XR WRIST 3 OR MORE VIEWS (RIGHT) (07/31/2019 5:59 PM EST) Anatomical Region Laterality Modality Wrist Right Radiographic Sameera ging 07/31/2019 6:09 PM EST Impressions 07/31/2019 6:11 PM EST Intra-articular fracture of the distal radius. No dislocation. POS - [id number] Narrative 07/31/2019 6:11 PM EST EXAM: XR WRIST 3 OR MORE VIEWS (RIGHT) COMPARISON: None FINDINGS: Comminuted intra-articular fracture of the distal radius. No additional fractures identified. No dislocation. Advanced hypertrophic degenerative changes at the 1st carpometacarpal joint. Soft tissue swelling about the wrist. Procedure Note Gwen Mo MD - 07/31/2019 EXAM: XR WRIST 3 OR MORE VIEWS (RIGHT) COMPARISON: None FINDINGS: Comminuted intra-articular fracture of the distal radius. No additionalfractures identified. No dislocation. Advanced hypertrophic degenerativechanges at the 1st carpometacarpal joint. Soft tissue swelling about thewrist. IMPRESSION: Intra-articular fracture of the distal radius. No dislocation. POS - [id number] us Bharti Bower Mitesh NEEDLE PROCESS FELT GOODS SUPERVISOR IMG XR UPPER EXTREMITY Carol l Result documented in this encounter Visit Diagnoses Not on filedocumented in this encounter Additional Health Concerns Infection Onset Date Last Indicated Resolved Time CoV-Risk 07/29/2024 07/29/2024 08/09/2024 1:21 AM EST Assessment Noted Time PHQ-2 Depression Total Score: 6 11/05/19 18 9:36 AM EDT documented as of this encounter Care Teams Meteorological Aide Relationship Specialty Start Date End Date Cat Rod MD [address] [place] [phone] [email or web address] PCP - General 05/12/17 12/22/21 Kristin Bear NP [address] [place] [address] Historical LMR Provider 05/14/17 2 Jett Pagan DO [address] [place] [address] [email or web address] Historical LMR Provider 05/14/17 Fiorella Arredondo DO [address] [place] [address] Historical LMR Provider 05/14/17 08/01/21 Cinthia Pa NP [address] [place] [address] Historical LMR Provider 05/14/17 2 Ted Kamara MD [address] [place] [address] [email or web address] Historical LMR Provider 05/14/17 08/01/21 Marina Diamond FNP [address] [place] [address] [email or web address] Historical LMR Provider 05/14/17 Sherita Reese NP [address] [place] [address] Historical LMR Provider 05/14/17 2 Andi Merida MD [address] [place] [address] [email or web address] Historical LMR Provider 05/14/17 08/01/21 Avila Granger DPM [address] [place] [address] Historical LMR Provider 05/14/1708/01/21 Cat Rod MD [address] [place] [address] [email or web address] Historical LMR Provider 05/14/17 Rafiq Dolan MD [address] [place] [phone] Historical LMR Provider 05/14/17 2 Lacey Rojas MD [address] [place] [address] [place] [address] [email or web address] Historical LMR Provider 05/14/17 08/01/21 Juancarlos Og MD [address] [facility] [address] [place] [phone] [email or web address] Historical LMR Provider 05/14/17 08/01/21 Isaac Swift MD [address] [place] [address] Orthoped[facility], [place] [address] [email or web address] Historical LMR Provider 05/14/17 2 Sukhdeep Zepeda MD [address] [place] [address] [email or web address] Historical LMR Provider 05/14/17 Cat Rod MD [address] [facility], [address] [place] [address] [email or web address] Insurance Assigned Provider 11/25/1810/30/22 documented as of this encounter Additional Source Comments The information contained in this document represents components of the legal health record. It is not the complete legal health record.[facility]
--- NOTE | 2025-04-10 11:11 | A.OFFVIS_ITS ---
Intake Visit Reasons: Left knee pain Intake Note: Genesis is a 74 year old female who presents with complaints of progressively worsening left knee pain. She describes her pain as sharp and severe in nature, 05/03. Her pain has gotten worse over the last few years in spite of continued non operative treatments. She has had both cortisone injections and viscosupplementation injections. The most recent set of injections gave her minimal relief. At this point her left knee pain is interfering with her activi ties of daily living and her ability to sleep well through the night. She has tried Tylenol and anti-inflammatory medicines which gave her only mild relief. The patient has difficulty walking even short distances because of her pain. She did undergo right total knee replacement surgery in 2014. She reports minimal discomfort in her right knee. Allergies No Known Allergies Allergy (Verified 04/10/25 11:15) Medication List - Last Reconciled 04/10/25 by Noe Pathak MD acetaminophen (Tylenol) 650 mg PO BEDTIME PRN amoxicillin-pot clavulanate 875-125 mg 1 tab PO BID fluoxetine 40 mg PO DAILY losartan 50 mg PO DAILY melatonin 3 mg PO BEDTIME PRN rosuvastatin 5 mg PO DAILY [facility] Medical History Grade I diastolic dysfunction Left atrial dilation GERD (gastroesophageal reflux disease) Left ventricular hypertrophy Sleep apnea with use of continuous positive airway pressure (CPAP) Atrial fibrillation Arthritis Back pain GERD (gastroesophageal reflux disease) SALVADOR on CPAP Atrial fibrillation Hypertension Depression Obesity Surgical History History of sleeve gastrectomy S/P laparoscopic sleeve gastrectomy History of uvulopalatopharyngoplasty Hx of colonoscopy S/P laparoscopic cholecystectomy Status post replacement of right shoulder joint Status post right knee replacement Family History Father CHF (congestive heart failure) Heart attack Mother CHF (congestive heart failure) DM (diabetes mellitus) Brother No problems noted. Son No problems noted. Son No problems noted. Social History Do you presently have visiting nurse or other home services: No Alcohol intake: current service: No Current occupational status: retired Physical Exam Const Other: Well-nourished well-developed very friendly female awake alert and oriented x3 in no acute distress Extrem Other: Left knee examination shows a minimal effusion, palpable crepitus with range of motion, pain with range of motion, range of motion from -3 degrees to 110 degrees, no instability Results Reviewed Results Reviewed: X-rays of the patient's left knee taken previously show end-stage degenerative joint disease with grade 4 [id number] arthritis, subchondral sclerosis, osteophyte formation, no acute bony abnormalities Assessment & Plan Assessment & Plan (1) Left knee pain: Code(s): M25.562 - Pain in left knee (2) Osteoarthritis of left knee: Code(s): M17.12 - Unilateral primary osteoarthritis, left knee Category: Medical Plan Ms. Tripp presents with progressively worsening left knee pain due to end- stage degenerative joint disease. I had a lengthy discussion with the patient regarding the treatment options. At this point she has failed continued non operative treatments. The risks and benefits of left total knee replacement surgery were discussed at length with the patient. The patient wishes to proceed with surgery. She will be scheduled for next available date. I will see her back 1 week prior to her surgery to answer any final questions that she might have. Feel free to call me at any time should questions regarding her orthopedic management arise. I spent 21 minutes in reviewing the patient's records and imaging studies, seeing the patient and documenting in the medical record. Coding Level of Care Code Est Pt Level 3 (49277) Complex EM visit Add On G2211 Diagnoses Left knee pain M25.562 Osteoarthritis of left knee M17.12
--- OUTSIDE RECORDS SUMMARY | 2025-04-10 14:17 | XMS_ITS | Encounter Summary ---
Author Organization [facility] Address [address] [place] [address] Phone Care Team Providers Care Firer Automatic Stoker Name Role Phone Cat Rod MD Primary Care Provider [phone] Kristin Bear OFFICE MACHINE REPAIR SHOP SUPERVISOR Unavailable Jett Pagan DO Unavailable Arnulfo Fiorella Eloise DO Unavailable Cinthia Pa OFFICE MACHINE REPAIR SHOP SUPERVISOR Unavailable Ted Kamara MD Unavailable Marina Diamond ROOF PLUMBER Unavailable Sherita Reese OFFICE MACHINE REPAIR SHOP SUPERVISOR Unavailable Andi Merida MD Unavailable [phone] Avila Granger DPM Unavailable Unavailable Cat Rod MD Unavailable Rafiq Dolan MD Unavailable Lacey Rojas MD Unavailable Juancarlos Og MD Unavailable Isaac Swift MD Unavailable uSkhdeep Zepeda MD Unavailable [phone] Cat Rod MD Unavailable Haleigh Perla MD Primary Care Provider [phone] Encounter Details Date Type Department Care Team (Late st Contact Info) Description 04/18/2019 Procedure Pass [address] [place] [address] Social History Tobacco Use Types Packs/Day Years Used Date Smoking Tobacco: Never Smokeless Tobacco: Never Alcohol Use Standard Drinks/Week Comments Yes 0 (1 standard drink = 0.6 oz pur e alcohol) occasionally Comments No Sex and Gender Information Value Date Recorded Sex Assigned at Female 07/03/2018 4:27 PM EST Legal Sex Female 10:01 PM EDT Gender Identity Female 07/03/2018 4:27 PM EST Sexual Orientation Straight 07/03/2018 4: 27 PM EST documented as of this encounter Plan of Treatment Upcoming Encounters Date Type Department Care Team (Late st Contact Info) Description 02/19/2025 Procedure Pass [address] [address] 08/28/2025 11:30 AM EST Office Visit [facility] [address] [place] [address] Alejandra Barfield MD [address] [place] [address] 10/03/2025 10:00 AM EDT Office Visit [facility] [address] [place] [address] 3rd Floor, [address] [place] [address] Samuel Lo MD [address] [place] [address] 10/04/2025 12:30 PM EDT Appointment [address] [address] Haleigh Perla MD [address] [place] [address], [facility] [address] [place] [address] documented as of this encounter Visit Diagnoses Not on filedocumented in this encounter Additional Health Concerns Infection Onset Date Last Indicated Resolved Time CoV-Risk 07/29/2024 07/29/2024 08/09/2024 1:21 AM EST Assessment Noted Time PHQ-2 Depression Total Score: 6 11/05/19 18 9:36 AM EDT documented as of this encounter Care Teams Firer Automatic Stoker Relationship Specialty Start Date End Date Cat Rod MD [address] [place] [address] [address] [place] [address] [email or web address] PCP - General 05/12/17 12/22/21 Haleigh Perla MD [address] [place] [address] 7 [place] [address] PCP - General Family Medicine 12/23/21 Kristin Bear NP 1 [place] [address] Historical LMR Provider 05/14/17 2 Jett Pagan DO [address] [place] [address] 7 [place] [address] Historical LMR Provider 05/14/17 Fiorella Arredondo DO [address] [place] [address] 7 [place] [address] Historical LMR Provider 05/14/17 08/01/21 Cinthia Pa NP [address] [place] [address] Historical LMR Provider 05/14/17 2 Ted Kamara MD [address] [place] [address] Historical LMR Provider 05/14/17 08/01/21 Marina Diamond FNP [address] [place] [address] [address] [place] [address] [email or web address] Historical LMR Provider 05/14/17 Sherita Reese NP [address] [place] [address] Historical LMR Provider 05/14/17 2 Andi Merida MD [address] [place] [address] Historical LMR Provider 05/14/17 08/01/21 Avila Granger DPM [address] [place] [address] Historical LMR Provider 05/14/1708/01/21 Cat Rod MD [address] [place] [address] [address] [place] [address] [email or web address] Historical LMR Provider 05/14/17 Rafiq Dolan MD [address] [place] [address] Historical LMR Provider 05/14/17 2 Lacey Rojas MD [address] [place] [address] [address] [place] [address] [email or web address] Historical LMR Provider 05/14/17 08/01/21 Juancarlos Og MD [address] [facility] [address] [place] [address] [email or web address] Historical LMR Provider 05/14/17 08/01/21 Isaac Swift MD [address] [place] [address] Orthopedics [facility] Sports Medicine, [place] [address] [email or web address] Historical LMR Provider 05/14/17 2 Sukhdeep Zepeda MD [address] [place] [address] JHONNY [address] [place] [address] [email or web address] Historical LMR Provider 05/14/17 Cat Rod MD [address] [place] [address], [address] [place] [address] [email or web address] Insurance Assigned Provider 11/25/18 10/30/22 documented as of this encounter Additional Source Comments The information contained in this document represents components of the legal health record. It is not the complete legal health record.[facility]
--- OUTSIDE RECORDS SUMMARY | 2025-04-10 14:17 | XMS_ITS | Encounter Summary ---
Author Organization [facility] Address [address] [place] [address] Phone Care Team Providers Care Income Tax Investigator Name Role Phone Jett Pagan Unavailable Marina Diamond VISUAL AND STOCK ASSOCIATE Unavailable [phone] Cat Rod MD Unavailable [phone] Sukhdeep Zepeda MD Unavailable [phone] Cat Rod MD Unavailable [phone] Haleigh Perla MD Primary Care Provider Encounter Details Date Type Department Care Team (Late st Contact Info) Description 12/25/2021 Procedure Pass [address] [address] Social History Tobacco Use Types Packs/Day Years [...] Answer Date Recorded Are you interested in help w ith more adult education (for example, completing high school, GED, job training, learning the Paraguayan language, technical skills, or developing parenting skills)? No 06/24/2021 Food Answer Date Recorded Within the past [...] your housing situation today? I have carina noel 06/24/2021 How many times have you move [...] basis, and looking for work? No 06/24/2021 Comments No Sex and Gender Information Value Date Recorded Sex Assigned at Female 07/03/2018 4:27 PM EST Legal Sex Female 10:01 PM EDT Gender Identity Female 07/03/2018 4:27 PM EST Sexual Orientation Straight 07/03/2018 4: 27 PM EST documented as of this encounter Plan of Treatment Upcoming Encounters Date Type Department Care Team (Late st Contact Info) Description 02/19/2025 Procedure Pass [address] [address] 08/28/2025 11:30 AM EST Office Visit [facility] [address] [place] [address] Alejandra Barfield MD [address] [place] [address] 7 [place] [address] 10/03/2025 10:00 AM EDT Office Visit [facility] [address] [place] [address] 3rd Floor, [address] [place] [address] Samuel Lo MD [address] [facility], [address] [place], [place] [address] [email or web address] 10/04/2025 12:30 PM EDT Appointment [facility] [address] [place] [address] Haleigh Perla MD [address] [place] [address] [address] [place] [address] [email or web address] documented as of this encounter Visit Diagnoses Not on filedocumented in this encounter Additional Health Concerns Infection Onset Date Last Indicated Resolved Time CoV-Risk 07/29/2024 07/29/2024 08/09/2024 1:21 AM EST Assessment Noted Time PHQ-2 Depression Total Score: 0 06/24/20 9:32 AM EST documented as of this encounter Care Teams Income Tax Investigator Relationship Specialty Start Date End Date Haleigh Perla MD [address] [place] [address] [place] [address] PCP - General Family Medicine 12/23/21 Jett Pagan DO [address] [place] [address] [place] [address] [email or web address] Historical LMR Provider 05/14/17 Marina Diamond FNP [address] [place] [address] [place] [address] [email or web address] Historical LMR Provider 05/14/17 Cat Rod MD [address] [place] [address] [place] [address] [email or web address] Historical LMR Provider 05/14/17 Sukhdeep Zepeda MD [address] [place] [address] [email or web address] Historical LMR Provider 05/14/17 Cat Rod MD [address] [place] [address] 7 [place] [address] [email or web address] Insurance Assigned Provider 11/25/18 10/30/22 documented as of this encounter Additional Source Comments The information contained in this document represents components of the legal health record. It is not the complete legal health record.[facility]
--- OUTSIDE RECORDS SUMMARY | 2025-04-10 14:17 | XMS_ITS | Encounter Summary ---
Author Organization [facility] Address [address] [place] [address] Phone Care Team Providers Care Cupola Mechanic Name Role Phone Cat Rod MD Primary Care Provider [phone] Kristin Bear MAGAZINE REPAIRER Unavailable Jett Pagan DO Unavailable Arnulfo Fiorella Eloise DO Unavailable Cinthia Pa MAGAZINE REPAIRER Unavailable Ted Kamara MD Unavailable Marina Diamond OPERATIONS MANAGER/COORDINATOR Unavailable Sherita Reese MAGAZINE REPAIRER Unavailable Andi Merida MD Unavailable [phone] Avila Granger DPM Unavailable Unavailable Cat Rod MD Unavailable Rafiq Dolan MD Unavailable Lacey Rojas MD Unavailable Juancarlos Og MD Unavailable Isaac Swift MD Unavailable Sukhdeep Zepeda MD Unavailable Cat Rod MD Unavailable Haleigh Perla MD Primary Care Provider [phone] Encounter Details Date Type Department Care Team (Late st Contact Info) Description 06/24/2021 Procedure Pass [facility], [facility] [address] [place] [address] Social History Tobacco Use Types Packs/Day Years [...] high school, GED, job training, learning the Egyptian language, technical skills, or developing parenting skills)? [...] st Contact Info) Description 02/19/2025 Procedure Pass [address] [address] 08/28/2025 11:30 AM EST Office Visit [facility] [address] [place] [address] Alejandra Barfield MD [address] [facility] 7 [place] [address] 10/03/2025 10:00 AM EDT Office Visit [facility] [address] [place] [address] 3rd Floor, [address] [place] [address] Samuel Lo MD [address] [place] [address], [address] [address] 10/04/2025 12:30 PM EDT Appointment [address] [address] Haleigh Perla MD [address] [place] [address] documented as of this encounter Visit Diagnoses Not on filedocumented in this encounter Additional Health Concerns Infection Onset Date Last Indicated Resolved Time CoV-Risk 07/29/2024 07/29/2024 08/09/2024 1:21 AM EST Assessment Noted Time PHQ-2 Depression Total Score: 0 06/24/20 9:32 AM EST documented as of this encounter Care Teams Cupola Mechanic Relationship Specialty Start Date End Date Cat Rod MD [address] [place] [address] PCP - General 05/12/17 12/22/21 Haleigh Perla MD [address] [place] [address] 7 [place] [address] PCP - General Family Medicine 12/23/21 Kristin Bear MAGAZINE REPAIRER 1 [place] [address] Historical LMR Provider 05/14/17 2 Jett Pagan DO [address] [place] [address] 7 [place] [address] Historical LMR Provider 05/14/17 Fiorella Arredondo DO [address] [place] [address] Historical LMR Provider 05/14/17 08/01/21 Cinthia Pa NP [address] [place] [address] Historical LMR Provider 05/14/17 2 Ted Kamara MD [address] [place] [address] Historical LMR Provider 05/14/17 08/01/21 Marina Diamond FNP [address] [place] [address] 7 [place] [address] Historical LMR Provider 05/14/17 Sherita Reese NP [address] [place] [address] Historical LMR Provider 05/14/17 2 Andi Merida MD [address] [place] [address] 301 [place] [address] [email or web address] Historical LMR Provider 05/14/17 08/01/21 Avila Granger DPM [address] [place] [address] Historical LMR Provider 05/14/1708/01/21 Cat Rod MD [address] [place] [address] 7 [place] [address] [email or web address] Historical LMR Provider 05/14/17 Rafiq Dolan MD [address] [place] [address] Historical LMR Provider 05/14/17 2 Lacey Rojas MD [address] [place] [address] 7 [place] [address] [email or web address] Historical LMR Provider 05/14/17 08/01/21 Juancarlos Og MD [address] [place], [place] [address] [place] [address] [email or web address] Historical LMR Provider 05/14/17 08/01/21 Isaac Swift MD [address] [place] [address] [facility] Sports Medicine, [facility] [place], [place] [phone] [email or web address] Historical LMR Provider 05/14/17 2 Sukhdeep Zepeda MD [address] [place] [address] [email or web address] Historical LMR Provider 05/14/17 Cat Rod MD [address] [place] [address], [address] [place] [address] [email or web address] Insurance Assigned Provider 11/25/18 10/30/22 documented as of this encounter Additional Source Comments The information contained in this document represents components of the legal health record. It is not the complete legal health record.[facility]
--- OUTSIDE RECORDS SUMMARY | 2025-04-10 14:18 | XMS_ITS | Clinical Summary ---
Author Organization [facility] Address [address] [place] [id number] Care Team Providers Care Attorney At Law Name Role Phone Cat Rod MD Primary Care Provider [phone] Allergies Active Allergy Reactions Criticality Noted Date [...] 09/06/2022 09/06/2012, 06/05/2002, 06/05/2002 Influenza Vaccine (#1) 2025 , 05/27/2020, 08/08/2019, Additional history exists RSV Adult > 60+ Yrs or (1 - 1-dose 75+ series) 2025 Pneumococcal Vaccine Completed 11/04/2017, 03/25/20 16 Hepatitis B Vaccines Aged Out No long er eligible based on patient's age to complete this topic RSV Ped < 20 months Aged Out No longe r eligible based on patient's age to complete this topic Care Teams Attorney At Law Relationship Specialty Start Date End Date Cat Rod MD [address] [id number] [place] [id number] PCP - General Family Medicine 02/02/18
--- OUTSIDE RECORDS SUMMARY | 2025-04-10 14:18 | XMS_ITS | Clinical Summary ---
Author Organization [facility] Address [address] [place] [address] Phone Care Team Providers Care Clinical Assessment Manager Name Role Phone Jett Pagan Unavailable Marina DiamondP Unavailable [phone] Cat Rod MD Unavailable [phone] Sukhdeep Zepeda MD Unavailable [phone] Haleigh Perla MD Primary Care Provider [phone] Allergies No known active allergies Medications aspirin 81 MG EC tabletIndications :Paroxysmal atrial fibrillation Take 81 mg by mouth daily. 4 Active rosuvastatin (CRESTOR) 5 MG tablet Take 1 tablet (5 mg total) by mouth daily. 90 tablet 3 5 Active FLUoxetine (PROZAC) 40 MG capsuleIndication s:Generalized anxiety disorder,Recurren t major depressive disorder, in full remission Take 1 capsule (40 mg total) by mouth daily. 30 capsule 6 5 Active losartan (COZAAR) 50 MG tabletIndications :Essential hypertension TAKE 1 TABLET DAILY 90 tablet 3 5 Active Active Problems Problem Noted Date Diagnosed Date Generalized anxiety disorder 11/05/2024 Assessment & Plan (02/27/2025 11:11 AM EDT): Well managed on fluoxetine, continue Assessment & Plan (11/05/2024 1:51 PM EDT): Switch from citalopram 40mg daily to fluoxetine 40mg daily (hx of sertraline trial which did not show benefit) Orders: FLUoxetine (PROZAC) 40 MG capsule; Take 1 capsule (40 mg total) by mouth daily. Anemia 12/24/2023 Assessment & Plan (07/23/2024 12:08 PM EST): Repeat CBC prior to next visit Orders: CBC; Future Assessment & Plan (12/25/2023 1:59 PM EDT): -Drop in hemoglobin steadily overnight to 7.3 this morning, given cardiac history we will transfuse 1 unit of blood-consent obtained risks and benefits discussed and informational sheet was left with the patient. -recheck her CBC this afternoon and if she needs another unit of blood we will order to maintain hgb > 8 Hypersomnia with sleep apnea 06/28/2022 Assessment & Plan (02/27/2025 11:11 AM EDT): Well controlled. Status post bariatric surgery 06/24/2021 Overview (06/24/2021): Apr 2020 in [place] Gastric sleeve History of right shoulder replacement 11/07/2018 Recurrent major depressive disorder, in full rem ission 05/28/2017 Assessment & Plan (11/05/2024 1:51 PM EDT): See above: fluoxetine Orders: FLUoxetine (PROZAC) 40 MG capsule; Take 1 capsule (40 mg total) by mouth daily. Hypertension 05/28/2017 Assessment & Plan (02/27/2025 11:11 AM EDT): Reasonably well managed on current regimen, losartan Assessment & Plan (11/05/2024 1:51 PM EDT): Very well managed on losartan Assessment & Plan (12/24/2023 6:30 PM EDT): Normotensive in the ED, will continue antihypertensive Assessment & Plan (10/08/2021 3:31 PM EDT): Blood pressure is 142/70. She is on losartan 50 mg daily. She is encouraged to continue exercising follow heart healthy diet including low-sodium Assessment & Plan (06/18/2020 11:20 AM EST): Well-controlled on present therapy. No changes. She will have a metabolic profile drawn this morning. Assessment & Plan (05/07/2020 12:23 PM EDT): Blood pressure in the office today 128/68, well controlled. Continued dietary modifications and exercise as well as intentional weight loss will assist with long-term BP control as well. Continue losartan for now. No medication adjustments today. Assessment & Plan (05/14/2019 3:11 PM EDT): Controlled on present therapy. No changes. Assessment & Plan (07/21/2018 3:32 PM EST): Controlled on minimal medication. Assessment & Plan (06/10/2017 11:41 AM EST): Controlled on present therapy. Gastroesophageal reflux disease 05/28/2017 Overview (11/07/2018): Endoscopy 2016 showed moderate hiatal hernia and a narrowing of the esophagus which was dilated. No sign of esophagitis. Assessment & Plan (07/23/2024 12:08 PM EST): Pantoprazole wean as per pt instructions starting Jul 2023. Gout 05/28/2017 Hyperlipidemia 05/28/2017 Assessment & Plan (02/27/2025 11:11 AM EDT): Well controlled Assessment & Plan (11/05/2024 1:51 PM EDT): Doing well on rosuvastatin so far w/o s/e Assessment & Plan (07/23/2024 12:08 PM EST): Fasting lipids prior to next appt. Orders: Lipid panel; Future Assessment & Plan (10/08/2021 3:30 PM EDT): She does exercise regularly and is now working. She will continue to modify her diet with a heart healthy diet and exercise. Assessment & Plan (05/14/2019 3:11 PM EDT): LDL now in the high 120s. Assessment & Plan (06/10/2017 11:41 AM EST): Has not had her labs repeated but will do so shortly. LDL was borderline in the past. She has not lost any weight and in fact is about 3 or 4 pounds heavier. Osteoarthritis 05/28/2017 Paroxysmal atrial fibrillation 05/28/2017 Assessment & Plan (02/27/2025 11:11 AM EDT): In regular rhythm today, s/p watchman and off anticoagulation. Doing well. Per cardiology stable. Assessment & Plan (12/25/2023 2:00 PM EDT): Follows with [facility] Rate is controlled however she is not on rate controlling medication Xarelto is on hold with concern for GI bleed/anemia Assessment & Plan (10/08/2021 3:30 PM EDT): Had no other occurrences of paroxysmal atrial fibrillation. She is on Xarelto 20 mg daily for anticoagulation. She will remain on this without change. As far as her spinal injection goes if needed to hold her anticoagulation could do so for 72 hours prior and then to resume as soon as deemed safe by the doctor performing the procedure but as soon as possible. Assessment & Plan (06/18/2020 11:20 AM EST): Appropriately anticoagulated. No clinical recurrences. Assessment & Plan (05/07/2020 12:23 PM EDT): Patient is not experiencing any symptoms from her arrhythmia at this time. She is adequately anticoagulated with Xarelto without bleeding complaint. EKG in the office today shows sinus rhythm. Assessment & Plan (12/19/2019 1:15 PM EDT): No clinical episodes. Anticoagulated. Assessment & Plan (05/14/2019 3:10 PM EDT): Remains in sinus rhythm today. Unaware of any dysrhythmia. Assessment & Plan (07/21/2018 3:32 PM EST): Remains in sinus rhythm. Her ECG today reveals sinus rate at 62 with left axis. I have told her to discontinue her Xarelto after the Tuesday dose before her surgery on Tuesday. Of course restart will be up to the orthopedic surgeon but obviously sooner the better. I would consider her at low risk for cardiac complications at the time of needed orthopedic surgery. Assessment & Plan (11/04/2017 12:30 PM EDT): In sinus rhythm today. She has been seeing Dr Zepeda. Assessment & Plan (06/10/2017 11:41 AM EST): No clinical evidence of recurrence and she remains on rate control medications and anticoagulation. Her lightheadedness sounds more like vertigo but if this continues at very least I would decrease her metoprolol to 25. I would also consider referral to a ENT physician to see if this could be a middle ear problem. Resolved Problems Problem Noted Date Diagnosed Date Resolved Date Anemia 12/25/2023 01/02/2024 GI bleed 12/24/2023 02/27/2025 Assessment & Plan (07/23/2024 12:08 PM EST): Repeat CBC prior to next visit Pantoprazole wean as noted above Orders: CBC; Future Ferritin; Future Vitamin B12; Future Assessment & Plan (12/27/2023 5:12 PM EDT): Melena and frequent bowel movements which is atypical for her -had been using NSAIDs over the last week also has a history of gastric sleeve hemoglobin is down to 8.1 from a baseline of 12 -History of EGD many years ago with noted GERD and hiatal hernia, also esophageal dilatation at that time, colonoscopy in her mid 60s was unremarkable per her reports -Patient has been on clear liquids PPI -EGD 12/25, colonoscopy 12/26, Ct enterography 12/26 all unrevealing as to source of GI bleed [ ] outpatient capsule endoscopy Chronic depression 06/28/2022 4 Dyspnea 12/19/2019 01/02/2024 Assessment & Plan (05/07/2020 12:24 PM EDT): Patient had historically reported dyspnea with exertion. Today she states that this is actually improving as she continues to exercise and lose weight. She is having a gastric sleeve procedure at [facility] on Tuesday and hopefully her dyspnea will continue to improve with ongoing weight loss and exercise. Assessment & Plan (12/19/2019 1:16 PM EDT): Likely multifactorial. She does have sleep apnea and he struggles with obesity. Symptoms are minimal and nothing at rest. She is going to try to get her weight down and see how it goes and let me know if she has any increase. No changes for now. Chronic right shoulder pain 02/15/2018 11/07/2018 Carpal tunnel syndrome 05/28/201701/01 Insomnia 05/28/2017 02/27/2025 Class 2 severe obesity due t o excess calories with serious comorbidity and body mass index (BMI) of 39.0 to 39.9 in adult 05/28/2017 4 Sleep apnea 05/28/2017 02/27/2025 Assessment & Plan (12/25/2023 1:55 PM EDT): CPAP from home Encounters Date Type Department Care Team Description 04/03/2025 10:40 AM EDT Office Visit [facility] 3rd Floor, [address] [place] [address] Samuel Lo MD Paroxysmal atrial fibrillation (Primary Dx); Essential hypertension; Pure hypercholesterolemia 03/28/2025 10:35 AM EDT - 03/28/2025 11:59 PM EDT Hospital Encounter [facility] [address] [place] [address] Samuel Lo MD Discharge Disposition: Home or Self Care 02/27/2025 10:30 AM EDT Office Visit [facility] [address] [place] [address] Haleigh Perla MD Generalized anxiety disorder (Primary Dx); Finger pain, left; Hypertension, unspecified type; Paroxysmal atrial fibrillation; Hypersomnia with sleep apnea; Pure hypercholesterolemia 02/19/2025 Transcribe Orders Virtual Department [address] [place] [id number] Haleigh Perla MD Breast screening (Primary Dx) from Last 3 Months Immunizations Immunization Administration Dates Next Due COVID-19 (Pre-05/16) Moderna Vaccine, mRNA, PF 10/18/2020,09/20/2020 INFLUENZA, SPLIT VIRUS, TRIV ALENT W/ PRESERVATIVE IM 04/08/2014,03/29/2012,08/04/2010 Influenza High-Dose Quadriva lent Preservative Free IM 07/27/2023,05/08/2022,05/27/2020 Influenza High-Dose Trivalen t Preservative Free IM 08/08/2019,05/03/2018,04/13/2017,03/25 Influenza Quadrivalent Adjuv anted Preservative Free IM 05/29/2021 Influenza Quadrivalent w/ Pr eservative IM 04/14/2015 Influenza Trivalent Adjuvant ed Preservative free IM 05/09/2024 Influenza trivalent preserva tive free intradermal 05/17/2013 Influenza, Unspecified Formulation 05/27/2020 PPD Test 05/17/2013 Pneumococcal conjugate PCV13 03/25/2016 Pneumococcal conjugate PCV20 05/09/2024 Pneumococcal polysaccharide PPSV23 11/04/2017 Td (adult) 5 Lf Tetanus Toxo id, PF, Adsorbed 06/05/2002 Td (adult),2 Lf Tetanus Toxo id, PF, Adsorbed 07/27/2023 Td, unspecified formulation 06/05/2002 Tdap 09/06/2012 Zoster live 03/29/2012 Zoster recombinant 12/10/2022,08/14/2022 Family History Medical History Relation Comments CV disease Father Heart attack Father Hyperlipidemia Father Hypertension Father Prostate cancer Father Diabetes mellitus Mother Hyperlipidemia Mother Hypertension Mother Breast cancer Neg Hx Relation Status Comments Father at 73, of h eart attack (40s) Mother at 83, of h eart disease Social History Tobacco Use Types Packs/Day Years Used Date Smoking Tobacco: Never Smokeless Tobacco: Never Tobacco Cessation:Counseling Given: Not Answered Alcohol Use Standard Drinks/Week Comments Yes 0 [...] Orientation Straight 07/03/2018 4: 27 PM EST Last Filed Vital Signs Vital Sign Reading Time Taken Comments Blood Pressure 142/82 04/03/2025 10:51 AM EDT Pulse 75 04/03/2025 10:51 AM EDT Temperature 36.3 C (97.3 F) 02/27/2025 10:39 AM EDT Respiratory Rate 16 10/30/2024 1:06 PM EDT Oxygen Saturation 98% 04/03/2025 10:51 AM EDT Inhaled Oxygen Concentration - - Weight 91.2 kg (201 lb) 04/03/2025 10:51 AM EDT Height 160 cm (5' 2.99 ) 04/03/2025 10:51 AM EDT Body Mass Index 35.61 04/03/2025 10:51 AM EDT Plan of Treatment Upcoming Encounters Date Type Department Care Team (Late st Contact Info) Description 02/19/2025 Procedure Pass [address] [address] 08/28/2025 11:30 AM EST Office Visit [facility] [address] [place] [phone] Alejandra Barfield MD [address] [place] [id number] 10/03/2025 10:00 AM EDT Office Visit [facility] [address] [place] [address] 3rd Floor, [address] [place] [address] Samuel Lo MD [address] [place] [address], [address] [place] [address] 10/04/2025 12:30 PM EDT Appointment [facility], [address] [address] Haleigh Perla MD [address] [place] [address], [address] [place] [address] [email or web address] Health Maintenance Due Date Last Done Comments COLOGUARD 11/21/1995 FIT TEST 11/21/1995 FOBT 11/21/1995 SIGMOIDOSCOPY 11/21/1995 VIRTUAL COLONOSCOPY 11/21/1995 RSV VACCINE (1 - Risk 60-74 years 1-dose series) 2010 DEPRESSION SCREENING 06/24/2022 06/24/2021 INFLUENZA VACCINE (#1) 2025 , 07/27/2023, 05/08/2022, Additional history exists MAMMOGRAM 03/17/2025 03/17/2023, 06/0 08/2021, 07/11/2020, Additional history exists COVID-19 VACCINE ( season) 2025 05/08/2022, 05/29/2021, 10/18/2020, Additional history exists CREATININE LEVEL 09/27/2025 09/27/2024, , 03/14/2024, Additional history exists POTASSIUM LEVEL 09/27/2025 09/27/2024, 05/26, 03/14/2024, Additional history exists BLOOD PRESSURE 10/01/2025 04/03/2025 LIPID PANEL 03/28/2030 03/28/2025, 03/0 12/2024, 10/07/2023, Additional history exists Adult Td,Tdap Booster 07/27/2033 07/27/2023 , 09/06/2012, 06/05/2002, Additional history exists COLONOSCOPY 12/26/2033 12/27/2023, 11/11/2015 COLORECTAL CANCER SCREENING 12/26/2033 OSTEOPOROSIS SCREENING INITIAL (ONE-TIME) Completed 02/24/2011 HEPATITIS C SCREENING Completed 01/11/2019, 019 ZOSTER VACCINES Completed 12/10/2022, 07/26, 03/29/2012 PNEUMOCOCCAL VACCINES (50+ years) Completed 05/09/2024, 11/04/2017, 03/25/2016 SMOKING STATUS SCREENING (Once After 26 Yrs) Completed 04/03/2025 HEPATITIS A VACCINES Aged Out No long er eligible based on patient's age to complete this topic HIB VACCINES Aged Out No longer eligi ble based on patient's age to complete this topic MENINGOCOCCAL VACCINES (ACWY) Aged Out No longer eligible based on patient's age to complete this topic MENINGOCOCCAL VACCINES (B) Aged Out N o longer eligible based on patient's age to complete this topic Medical Devices Implanted Type Area Motivational Speaker Device Identifier Shelf Expiration Date Model / Serial / Lot Right Shoulder And Right Knee Procedures Procedure Name Priority Date/Time Associated Diagnosis Comments LIPID PANEL Routine 03/28/2025 10:35 AM EDT Pure hypercholesterolemia BASIC METABOLIC PANEL Routine 09/27/2024 8:27 AM EST Elevated fasting glucose ENDOSCOPY, COLON 12/27/2023 7:42 AM EDT BI MAMMOGRAM SCREENING WITH TOMOSYNTHESIS WITH CAD (BILATERAL) Routine 03/17/2023 2:19 PM EDT Encounter for screening mammogram for malignant neoplasm of breast HEPATITIS C ANTIBODY, QUALITATIVE Routine 01/11/2019 9:13 AM EDT Annual physical exam OUTSIDE BONE DENSITY SCREENING Routine 02/24/2011 from Last 3 Months or Most Recently Relevant to Health Maintenance Results * (ABNORMAL) Lipid panel (03/28/2025 10:35 AM EDT) HDL 63 mg/dL [facility] Comment: Interpretation <40 mg/dL: Low HDL cholesterol (major risk factor for CHD) Greater than or equal to 60 mg/dL: High HDL cholesterol ( negative risk factor for CHD) HDL - cholesterol is affected by a number of factors, e.g. smoking, excerise, hormones, sex and age. CHOLESTEROL 154 0 - 240 mg/dL [facility] TRIGLYCERIDES 89 30 - 160 mg/dL [facility] LDL 73 50 - 129 mg/dL [facility] Comment: LDL levels in terms of risk for coronary heart disease: <100 mg/dL: Optimal 100-129 mg/dL: Near or above optimal 130-159 mg/dL: Borderline high 160-189 mg/dL: High >190 mg/dL: Very High CARDIAC RISK RATIO 2.4(L) 3.3 - 4.4 C [facility] Blood 03/28/2025 10:3 5 AM EDT 03/28/2025 10:39 AM EDT us Samuel Lo MD LAB BLOOD ORDERABLES Final Re sult Performing Organization Address [facility] Co de Phone Number [address] [address] * (ABNORMAL) Basic metabolic panel (09/27/2024 8:27 AM EST) SODIUM 140 133 - 146 mmol/L [facility] CHLORIDE 102 96 - 108 mmol/L [facility] POTASSIUM 4.2 3.3 - 5.1 mmol/L [facility] CO2 28 21 - 35 mmol/L [facility] BUN 20(H) 6 - 19 mg/dL [facility] CREATININE 0.70 0.5 - 1.5 mg/dL [facility] GLUCOSE 91 70 - 99 mg/dL [facility] CALCIUM 9.2 8.4 - 10.3 mg/dL [facility] EGFR 91 >59 mL/min/1.7 3m2 [facility] Comment:Estimated glomerular filtration rate calculated using the CKD-EPI refit equation. ANION GAP 14 10 - 20 mmol/L [facility] Blood 09/27/2024 8:27 AM EST 09/27/2024 8:33 AM EST us Haleigh Perla MD LAB BLOOD ORDERABLES Carol l Result Performing Organization Address City/[facility]/ZIP Co de Phone Number [address] [address] * ENDOSCOPY, COLON (12/27/2023 7:42 AM EDT) Narrative Transcriptions Estefanía Talamantes MD, MPH - 12/27/2023 7:42 AM EDT [facility] Patient Name: Genesis Josee Attending MD:: ESTEFANÍA TALAMANTES MD, Procedure Date: 12/27/2023 7:42 AM Date of : 1950 Age: 73 Admit Type: Outpatient Gender: Female Room: [place] [address] Referring MD: Haleigh Sarmiento Exam Type: Colonoscopy Indications: Melena Medications: Monitored Anesthesia Care Procedure: Informed consent was obtained from the patientafter discussion of the indications, limitations, alternatives, benefits, and risks of the procedure. Risks specifically discussed include but are not limited to medication reactions, missed lesions, bleeding, perforation, or the need for emergent surgery. Throughout the procedure, the patient's blood pressure, pulse, end-tidal CO2, and oxygensaturations were monitored continuously. The Olympus adult variable colonoscope CF-EX420M #7 was introduced through the anus and advanced to the cecum, identified by the appendiceal orifice, ICvalve and transillumination. The colonoscopy wasperformed without difficulty. The patient tolerated the procedure well. The quality of the bowelpreparation was evaluated using the BBPS (Clements BowelPreparation Scale) with scores of: Right Colon = 3, Transverse Colon = 3 and Left Colon = 3 (entire mucosa seenwell with no residual staining, small fragments of stoolor opaque liquid). The total BBPS score equals 9. The ileocecal valve, appendiceal orifice, and rectumwere photographed. Complications: No immediate complications. Findings: The perianal and digital rectal examinations were normal. A few small and large-mouthed diverticula werefound in the entire colon. The rectum, sigmoid colon, transverse colon,ascending colon, cecum and appendiceal orifice appearednormal. No additional abnormalities were found onretroflexion. Impression: - No signs of active bleeding or old bloodthroughout the colon. - Diverticulosis in the entire examined colon. - The rectum, sigmoid colon, transverse colon, ascending colon, cecum and appendiceal orifice are normal. - No specimens collected. Recommendation: Continue to monitor hgb level while re-startingxarelto Consider CT enterography inpatient prior todischarge to rule out small bowel mass If hgb remains stable inpatient after re-start xarelto, can plan for close follow-up (within 1week) to check hgb level and set up for capsuleendoscopy Dr Estefanía Talamantes ESTEFANÍA TALAMANTES MD 12/27/2023 8:30:01 AM This report has been signed electronically. Number of Addenda: 0 Note Initiated On: 12/27/2023 7:42 AM Procedure Code(s): --- Professional --- 91883, Colonoscopy, flexible; diagnostic, including collection of specimen(s) by brushing or washing, when performed (separateprocedure) --- Technical --- 12786, Colonoscopy, flexible; diagnostic, including collection of specimen(s) by brushing or washing, when performed (separateprocedure) Diagnosis Code(s): --- Professional --- K92.1, Melena (includes Hematochezia) K57.30, Diverticulosis of large intestine without perforation or abscess without bleeding --- Technical --- K92.1, Melena (includes Hematochezia) K57.30, Diverticulosis of large intestine without perforation or abscess without bleeding CPT copyright 2022 [employer]. All rights reserved. The codes documented in this report are preliminary and upon cloud subject matter expert reviewmay be revised to meet current compliance requirements. Procedure Date: 12/27/2023 7:42:[address] [place] [id number] us Haleigh Perla MD GI PROCEDURE ORDERABLES F inal Result * BI MAMMOGRAM SCREENING WITH TOMOSYNTHESIS WITH CAD (BILATERAL) (03/17/2023 2:19 PM EDT) Anatomical Region Laterality Modality Breast Left, Breast Right, Breast Bilateral Bila teral Mammography 03/24/2023 5:17 PM EDT Impressions 03/24/2023 5:19 PM EDT No findings suspicious for malignancy are identified. In the absence of a worrisome palpable abnormality, annual screening mammography is recommended. BI-RADS CATEGORY: 1 - Negative. DENSITY: There are scattered fibroglandular densities. Narrative 03/24/2023 5:19 PM EDT AVAILABLE COMPARISON: 09/17/2022 through 07/06/2004 Bilateral 3-D tomosynthesis with 2-D reconstructions in the CC and MLO projection. Computer-aided detection system was utilized. No new mass, asymmetry, architectural distortion or suspicious calcifications have become apparent in either breast. Procedure Note Jett Hand MD - 03/24/2023 AVAILABLE COMPARISON: 09/17/2022 through 07/06/2004 Bilateral 3-D tomosynthesis with 2-D reconstructions in the CC and MLOprojection. Computer-aided detection system was utilized. No new mass, asymmetry, architectural distortion or suspiciouscalcifications have become apparent in either breast. IMPRESSION: No findings suspicious for malignancy are identified. In the absence of aworrisome palpable abnormality, annual screening mammography isrecommended. BI-RADS CATEGORY: 1 - Negative. DENSITY: There are scattered fibroglandular densities. Haleigh Perla MD IMG MG EXAMS Final Res ult * Hepatitis C antibody, qualitative (01/11/2019 9:13 AM EDT) HCV Negative Negative [facility] Comment: This is a screening test and should be confirmed with molecular testing Blood 01/11/2019 9:13 AM EDT 01/11/2019 9:25 AM EDT us Cat Rod MD LAB BLOOD ORDERABLES Final Re sult [facility] [address] [place] [address] * OUTSIDE BONE DENSITY SCREENING (02/24/2011) BONE DENSITY SCREENING - EXTERNAL normal Historical Provider HEALTH MAINTENANCE Final Result from Last 3 Months or Most Recently Relevant to Health Maintenance Insurance [place] MEDIC[place] P[place] BLUE REPLACEMENT MEDICARE PART A & B * Guarantor: Genesis Tripp Account Type Relation to Patient Date of Phone Billing Address Personal/Family Self [address] [place] [address] MEDICARE PPO BLUE REPLACEMENT MEDICARE PART A & B * Guarantor: Genesis Tripp Account Type Relation to Patient Date of Phone Billing Address Personal/Family Self [address] [place] [address] MEDICARE PPO BLUE REPLACEMENT MEDICARE PART A & B Member Subscriber Plan / Payer (Ef fective 2022-) Name:Genesis Tripp Member ID:[id number] Relation to Subscriber:Self Name:Genesis Tripp Subscriber ID:[id number] Payer ID:[id number] Group ID:Not on file Type:Medicare Address: [employer] [address] MEDICARE PART A & B * Guarantor: Genesis Tripp Account Type Relation to Patient Date of Phone Billing Address Personal/Family Self [address] [place] [address] MEDICARE PPO BLUE REPLACEMENT MEDICARE PART A & B [place] BLUE REPLACEMENT MEDICARE PART A & B Advance Directives For more information, please contact: [phone] (9AM - 5PM [facility], Tuesday-Tuesday) Documents on File Type Date Recorded Patient Order Booker Expl anation Healthcare Proxy 12/29/2023 3:07 PM Healthcare Proxy 12/26/2023 3:30 PM health[facility] are proxy * Full Code (Latest Code Status on File) Date Activated Date Inactivated Comments 12/24/2023 7:52 PM Question Answer Comments Code Status Confirmed With: Patient Care Teams Clinical Assessment Manager Relationship Specialty Start Date End Date Haleigh Perla MD [address] [facility], [facility] 7 [place] [address] [email or web address] PCP - General Family Medicine 12/23/21 Jett Pagan DO [address] [facility], [facility] 7 [place] [address] [email or web address] Historical LMR Provider 05/14/17 Marina Diamond FNP [address] [facility], [facility] 7 [place] [address] [email or web address] Historical LMR Provider 05/14/17 Cat Rod MD [address] [facility], [facility] 7 [place] [address] [email or web address] Historical LMR Provider 05/14/17 Sukhdeep Zepeda MD [address] [place] [address] [email or web address] Historical LMR Provider 05/14/17 Additional Source Comments The information contained in this document represents components of the legal health record. It is not the complete legal health record.[facility]
--- OUTSIDE RECORDS SUMMARY | 2025-04-10 14:18 | XMS_ITS | Encounter Summary ---
Author Organization [facility] Address [address] [place] [address] Phone Care Team Providers Care Comic Writer Name Role Phone Cat Rod MD Primary Care Provider [phone] Kristin Bear DUPLICATE MAKER Unavailable Jett Pagan DO Unavailable Arnulfo Fiorella Eloise DO Unavailable Cinthia Pa DUPLICATE MAKER Unavailable Ted Kamara MD Unavailable Marina Diamond ASSOCIATE WEB DEVELOPER Unavailable Sherita Reese DUPLICATE MAKER Unavailable Andi Merida MD Unavailable [phone] Avila Granger DPM Unavailable Unavailable Cat Rod MD Unavailable Rafiq Dolan MD Unavailable Lacey Rojas MD Unavailable Juancarlos Og MD Unavailable Isaac Swift MD Unavailable Sukhdeep Zepeda MD Unavailable [phone] Cat Rod MD Unavailable Haleigh Perla MD Primary Care Provider [phone] Reason for Referral * Physical Therapy (Routine) - Closed Specialty Diagnoses / Procedures Referred By Skyler mascorro Referred To Contact Physical Therapy Diagnoses Encounter for rehabilitation System, Provider Not In, [facility] [address] [address] Phone: tel: Referral ID Status Reason Start Date Expiration Date Visits Re quested Visits Authorized [id number] Closed 09/25/2018 07/04/2019 25 25 Encounter Details Date Type Department Care Team (Latest Contact Info) Description 09/20/2018 Transcribe Orders [facility] [address] [place] [address] Cat Rod MD [address] [place] [address] 7 [place] [address] [email or web address] Encounter for rehabilitation (Primary Dx) Social History Tobacco Use Types Packs/Day Years [...] st Contact Info) Description 02/19/2025 Procedure Pass [facility], [facility] 30 [place] [address] 08/28/2025 11:30 AM EST Office Visit [facility] [address] [place] [address] Alejandra Barfield MD 234 [facility], [facility] 7 [place], [place] [id number] 10/03/2025 10:00 AM EDT Office Visit [facility] 22 [facility] 3rd Floor, [address] [place] [address] Samuel Lo MD 22 [facility], [address] [place] [address] 10/04/2025 12:30 PM EDT Appointment [address] [address] Haleigh Perla MD [address] [place] [address] 7 [place] [address] Scheduled Referrals Name Type Priority Associated Diagnoses Orde r Schedule Ambulatory referral to [facility] Physical Therapy Outpatient Referral Routine Encounter for rehabilitation Ordered: 09/20/2018 documented as of this encounter Visit Diagnoses Diagnosis Encounter for rehabilitation- Primary documented in this encounter Additional Health Concerns Infection Onset Date Last Indicated Resolved Time CoV-Risk 07/29/2024 07/29/2024 08/09/2024 1:21 AM EST Assessment Noted Time PHQ-2 Depression Total Score: 6 11/05/19 18 9:36 AM EDT documented as of this encounter Care Teams Comic Writer Relationship Specialty Start Date End Date Cat Rod MD [address] [place] [address] 7 [place] [address] PCP - General 05/12/17 12/22/21 Haleigh Perla MD [address] [place] [address] 7 [place] [address] PCP - General Family Medicine 12/23/21 Kristin Bear NP 1 [facility] [place] [address] Historical LMR Provider 05/14/17 2 Jett Pagan DO [address] [place] [address] Historical LMR Provider 05/14/17 Fiorella Arredondo DO [address] [place] [address] [email or web address] Historical LMR Provider 05/14/17 08/01/21 Cinthia Pa NP [address] [place] [address] Historical LMR Provider 05/14/17 2 Ted Kamara MD [address] [place] [address] [email or web address] Historical LMR Provider 05/14/17 08/01/21 Marina Diamond FNP [address] [place] [address] [email or web address] Historical LMR Provider 05/14/17 Sherita Reese, SALLIE [address] [place] [address] Historical LMR Provider 05/14/17 2 Andi Merida MD [address] [place] [address] Historical LMR Provider 05/14/17 08/01/21 Avila Granger DPM [address] [place] [address] [place] [address] Historical LMR Provider 05/14/1708/01/21 Cat Rod MD [address] [place] [address], [facility] 7 [place] [address] [email or web address] Historical LMR Provider 05/14/17 Rafiq Dolan MD [address] [place] [phone] Historical LMR Provider 05/14/17 2 Lacey Rojas MD [address] [place] [address] 7 [place] [address] [email or web address] Historical LMR Provider 05/14/17 08/01/21 Juancarlos Og MD [address] [place], [place] [address] [place] [address] [email or web address] Historical LMR Provider 05/14/17 08/01/21 Isaac Swift MD [address] [place] [address] [facility], [place] [address] [email or web address] Historical LMR Provider 05/14/17 2 Sukhdeep Zepeda MD [address] [place] [address] [email or web address] Historical LMR Provider 05/14/17 Cat Rod MD [address] [place] [address] [address] [place] [address] [email or web address] Insurance Assigned Provider 11/25/18 10/30/22 documented as of this encounter Additional Source Comments The information contained in this document represents components of the legal health record. It is not the complete legal health record.[facility]
--- OUTSIDE RECORDS SUMMARY | 2025-04-10 14:18 | XMS_ITS | Encounter Summary ---
Author Organization [facility] Address [address] [place] [address] Phone Care Team Providers Care Special Forces Weapons Sergeant Name Role Phone Ej Jett Norris DO Unavailable Marina DiamondP Unavailable Cat Rod MD Unavailable [phone] Sukhdeep Zepeda MD Unavailable [phone] Haleigh Perla MD Primary Care Provider Encounter Details Date Type Department Care Team (Late st Contact Info) Description 12/27/2023 Procedure Pass [facility], Ct Scan - [address] [address] Social History Tobacco Use Types Packs/Day Years [...] st Contact Info) Description 02/19/2025 Procedure Pass [address] [address] 08/28/2025 11:30 AM EST Office Visit [facility] 234 [place] [address] Alejandra [place] MD 234 [facility] 7 [place] [address] 10/03/2025 10:00 AM EDT Office Visit [facility] 22 [facility] 3rd Floor, [address] [place] [address] Samuel Lo MD 22 [facility], [address] [place] [address] 10/04/2025 12:30 PM EDT Appointment [facility], [facility] 30 [place] [address] Haleigh Perla MD [address] [address] documented as of this encounter Visit Diagnoses Not on filedocumented in this encounter Additional Health Concerns Infection Onset Date Last Indicated Resolved Time CoV-Risk 07/29/2024 07/29/2024 08/09/2024 1:21 AM EST Assessment Noted Time PHQ-2 Depression Total Score: 0 06/24/20 21 9:32 AM EST documented as of this encounter Care Teams Special Forces Weapons Sergeant Relationship Specialty Start Date End Date Haleigh Perla MD [address] [place] [address] 7 [place] [address] PCP - General Family Medicine 12/23/21 Jett Pagan DO [address] [place] [address] 7 [place] [address] Historical LMR Provider 05/14/17 Marina Diamond FNP [address] [place] [address] 7 [place] [address] [email or web address] Historical LMR Provider 05/14/17 Cat Rod MD [address] [place] [address] 7 [place] [address] [email or web address] Historical LMR Provider 05/14/17 Sukhdeep Zepeda MD [address] [place] [address] [email or web address] Historical LMR Provider 05/14/17 documented as of this encounter Additional Source Comments The information contained in this document represents components of the legal health record. It is not the complete legal health record.[facility]
--- OUTSIDE RECORDS SUMMARY | 2025-04-10 14:18 | XMS_ITS | Encounter Summary ---
Author Organization [facility] Address [address] [place] [address] Phone Care Team Providers Care Skin Toggler Name Role Phone Cat Rod MD Primary Care Provider [phone] Kristin Bear AIR INTELLIGENCE SPECIALIST Unavailable Jett Pagan DO Unavailable Arnulfo Fiorella Eloise DO Unavailable Cinthia Pa AIR INTELLIGENCE SPECIALIST Unavailable Ted Kamara MD Unavailable Marina Diamond TOOL RADIAL DRILL PRESS SET UP OPERATOR Unavailable Sherita Reese AIR INTELLIGENCE SPECIALIST Unavailable Andi Merida MD Unavailable [phone] Avila Granger DPM Unavailable Unavailable Cat Rod MD Unavailable Rafiq Dolan MD Unavailable Lcaey Rojas MD Unavailable Juancarlos Og MD Unavailable Isaac Swift MD Unavailable Sukhdeep Zepeda MD Unavailable [phone] Cat Rod MD Unavailable Haleigh Perla MD Primary Care Provider [phone] Encounter Details Date Type Department Care Team (Late Contact Info) Description 09/11/2020 Ancillary Orders Virtual Department [address] [place] [address] Zeyad Bridges, DO [address] [place] [address] [email or web address] Lumbar back pain; Cervicalgia Social History Tobacco Use Types Packs/Day Years [...] Encounters Date Type Department Care Team (Late Contact Info) Description 02/19/2025 Procedure Pass [address] [address] 08/28/2025 11:30 AM EST Office Visit [facility] Medicine [address] [place] [address] Alejandra [place] MD [address] [place] [address] 10/03/2025 10:00 AM EDT Office Visit [facility] [address] [place] [address] 3rd Floor, [address] [place] [address] Samuel Lo MD 22 [facility], [address] [place] [address] 10/04/2025 12:30 PM EDT Appointment [address] [address] Haleigh Perla MD [address] [place] [address], [address] [place] [address] [email or web address] documented as of this encounter Results * XR LUMBOSACRAL SPINE 4 OR MORE VIEWS (09/12/2020 12:14 PM EST) Anatomical Region Laterality Modality L-spine Computed Radiogr aphy 09/12/2020 12:4 4 PM EST Impressions 09/12/2020 12:48 PM EST Marked dextroscoliosis which limits evaluation. Advanced spondylosis, minor multilevel malalignment and advanced degenerative disc disease at the L1-L4 levels. Narrative 09/12/2020 12:48 PM EST TECHNIQUE: XR LUMBOSACRAL SPINE 4 OR MORE VIEWS COMPARISON: Correlation is made to an MRI dated 04/28/2019. HISTORY: Lumbar back pain FINDINGS: There are 5 lumbar-type vertebral bodies. Marked spondylosis and dextroscoliosis is present somewhat limiting evaluation. Mild osteopenia seems to be present. There is evidence of prior extensive abdominal surgery. Scoliosis particularly limits evaluation of oblique images but there does not seem to be spondylolysis at the inferior levels. There is mild anterolisthesis on L4 and L5 and minimal retrolisthesis of L2 on L3. There is evidence of advanced degenerative disc disease at the L1 L2-L4 levels with disc space narrowing and partial vacuum disc phenomena. Procedure Note Dharmesh Cox MD - 09/12/2020 TECHNIQUE: XR LUMBOSACRAL SPINE 4 OR MORE VIEWS COMPARISON: Correlation is made to an MRI dated 04/28/2019. HISTORY: Lumbar back pain FINDINGS: There are 5 lumbar-type vertebral bodies. Marked spondylosis anddextroscoliosis is present somewhat limiting evaluation. Mild osteopeniaseems to be present. There is evidence of prior extensive abdominalsurgery. Scoliosis particularly limits evaluation of oblique images butthere does not seem to be spondylolysis at the inferior levels. There ismild anterolisthesis on L4 and L5 and minimal retrolisthesis of L2 on L3.There is evidence of advanced degenerative disc disease at the L1 L2-B9ffkddl with disc space narrowing and partial vacuum disc phenomena. IMPRESSION: Marked dextroscoliosis which limits evaluation. Advanced spondylosis,minor multilevel malalignment and advanced degenerative disc disease atthe L1-L4 levels. us Zeyad Bridges DO IMG XR SPINE Final Result * XR CERVICAL SPINE 4-5 VIEWS (09/12/2020 12:13 PM EST) Anatomical Region Laterality Modality C-spine Computed Radiogr aphy 09/12/2020 12:3 4 PM EST Impressions 09/12/2020 12:44 PM EST Mild to moderate C4 on C5 anterolisthesis. 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 Mid and lower cervical spine mild neuroforaminal narrowing seems to be present due to bone spurring although there are some limitations to evaluation, as described above. Narrative 09/12/2020 12:44 PM EST TECHNIQUE: XR CERVICAL SPINE 4-5 VIEWS COMPARISON: None HISTORY: Cervicalgia FINDINGS: There is minimal C3 is on C4 and mild to moderate C4 on C5 anterolisthesis. Severe degenerative disc disease is noticed at C5-C7. Soft tissue planes are intact. Bone mineralization is within normal limits. There is no significant bone lesion. Right-sided neuroforamina are widely patent. On the left, evaluation is somewhat limited due to multilevel vertebral body malalignment. Mild neuroforaminal narrowing seems to be present at the C5/C6 and C4/C5 neuroforamina due to bone spurring. There is moderate uncovertebral arthrosis. Normal odontoid process and lateral masses. 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 Procedure Note Dharmesh Cox MD - 09/12/2020 TECHNIQUE: XR CERVICAL SPINE 4-5 VIEWS COMPARISON: None HISTORY: Cervicalgia FINDINGS: There is minimal C3 is on C4 and mild to moderate C4 on [id number]. Severe degenerative disc disease is noticed at C5-C7.Soft tissue planes are intact. Bone mineralization is within normallimits. There is no significant bone lesion. Right-sided neuroforamina arewidely patent. On the left, evaluation is somewhat limited due tomultilevel vertebral body malalignment. Mild neuroforaminal narrowingseems to be present at the C5/C6 and C4/C5 neuroforamina due to bonespurring. There is moderate uncovertebral arthrosis. Normal odontoidprocess and lateral masses. Prior complete arthroplasty at one of the humeroglenoid jointsincidentally noted. IMPRESSION: Mild to moderate C4 on C5 anterolisthesis. Advanced DJD at the lowercervical spine. Mid and lower cervical spine mild neuroforaminal narrowingseems to be present due to bone spurring although there are somelimitations to evaluation, as described above. us Zeyad Bridges DO IMG XR SPINE Final Result documented in this encounter Visit Diagnoses Diagnosis Lumbar back pain Lumbago Cervicalgia Cervicalgia Lumbar back pain Lumbago documented in this encounter Additional Health Concerns Infection Onset Date Last Indicated Resolved Time CoV-Risk 07/29/2024 07/29/2024 08/09/2024 1:21 AM EST Assessment Noted Time PHQ-2 Depression Total Score: 6 11/05/19 18 9:36 AM EDT documented as of this encounter Care Teams Skin Toggler Relationship Specialty Start Date End Date Cat Rod MD [address] [place] [address], [facility] 7 [place] [address] PCP - General 05/12/17 12/22/21 Haleigh Perla MD 234 [facility], [facility] 7 [place] [address] PCP - General Family Medicine 12/23/21 Kristin Bear NP 1 [facility] [place] [address] Historical LMR Provider 05/14/17 2 Jett Pagan DO [address] [place] [address] 7 [place] [address] Historical LMR Provider 05/14/17 Fiorella Arredondo DO [address] [place] [address] 7 [place] [address] [email or web address] Historical LMR Provider 05/14/17 08/01/21 Cinthia Pa NP [address] [place] [address] Historical LMR Provider 05/14/17 2 Ted Kamara MD [address] [place] [address] [email or web address] Historical LMR Provider 05/14/17 08/01/21 Marina Diamond FNP [address] [place] [address] [email or web address] Historical LMR Provider 05/14/17 Sherita Reese, SALLIE [address] [place] [address] Historical LMR Provider 05/14/17 2 Andi Merida MD [address] [place] [address] Historical LMR Provider 05/14/17 08/01/21 Avila Granger DPM [address] [place], [place] [address], [place] [address] Historical LMR Provider 05/14/1708/01/21 Cat Rod MD [address] [place] [address], [facility] 7 [place] [address] Historical LMR Provider 05/14/17 Rafiq Dolan MD [address] [place] [phone] Historical LMR Provider 05/14/17 2 Lacey Rojas MD [address] [place] [address] 7 [place] [address] [email or web address] Historical LMR Provider 05/14/17 08/01/21 Juancarlos Og MD [address] [place], [place] [address] [place] [address] [email or web address] Historical LMR Provider 05/14/17 08/01/21 Isaac Swift MD [address] [place] [address] [facility], [place] [address] Historical LMR Provider 05/14/17 2 Sukhdeep Zepeda MD [address] [place] [address] [email or web address] Historical LMR Provider 05/14/17 Cat Rod MD [address] [place] [address] 7 [place] [address] [email or web address] Insurance Assigned Provider 11/25/18 10/30/22 documented as of this encounter Additional Source Comments The information contained in this document represents components of the legal health record. It is not the complete legal health record.[facility]
--- OUTSIDE RECORDS SUMMARY | 2025-04-10 14:18 | XMS_ITS | Encounter Summary ---
Author Organization [facility] Address [address] [place] [address] Phone Care Team Providers Care Control System Manager Name Role Phone Jett Pagan Unavailable Marina DiamondP Unavailable [phone] Cat Rod MD Unavailable [phone] Sukhdeep Zepeda MD Unavailable [phone] Haleigh Perla MD Primary Care Provider Encounter Details Date Type Department Care Team (Late st Contact Info) Description 04/25/2024 Procedure Pass [facility] 30 [place] [address] Social History Tobacco Use Types Packs/Day Years [...] st Contact Info) Description 02/19/2025 Procedure Pass [address] [address] 08/28/2025 11:30 AM EST Office Visit [facility] 234 [place] [address] Alejandra Barfield MD [address] [place] [address] 10/03/2025 10:00 AM EDT Office Visit [facility] 22 [facility] 3rd Floor, [address] [place] [address] Samuel Lo MD 22 [facility], [address] [place] [address] 10/04/2025 12:30 PM EDT Appointment [facility], [facility] 30 [place] [address] Haleigh Perla MD [address] [place] [address] documented as of this encounter Visit Diagnoses Not on filedocumented in this encounter Additional Health Concerns Infection Onset Date Last Indicated Resolved Time CoV-Risk 07/29/2024 07/29/2024 08/09/2024 1:21 AM EST Assessment Noted Time PHQ-2 Depression Total Score: 0 06/24/20 9:32 AM EST documented as of this encounter Care Teams Control System Manager Relationship Specialty Start Date End Date Haleigh Perla MD [address] [place] [address] 7 [place] [address] PCP - General Family Medicine 12/23/21 Jett Pagan DO [address] [place] [address] Historical LMR Provider 05/14/17 Marina Diamond FNP [address] [place] [address] 7 [place] [address] [email or web address] Historical LMR Provider 05/14/17 Cat Rod MD [address] [place] [address] 7 [place] [address] [email or web address] Historical LMR Provider 05/14/17 Sukhdeep Zepeda MD [address] [place] [address] [email or web address] Historical LMR Provider 05/14/17 documented as of this encounter Additional Source Comments The information contained in this document represents components of the legal health record. It is not the complete legal health record.[facility]
--- OUTSIDE RECORDS SUMMARY | 2025-04-10 14:18 | XMS_ITS | Encounter Summary ---
Author Organization [facility] Address [address] [place] [address] Phone Care Team Providers Care Clinical Practitioner Name Role Phone Cat Rod MD Primary Care Provider [phone] Kristin Bear HOT STRIP MILL INSPECTOR Unavailable Jett Pagan DO Unavailable Arnulfo Fiorella Eloise DO Unavailable Cinthia Pa HOT STRIP MILL INSPECTOR Unavailable Ted Kamara MD Unavailable Marina Diamond SCHOOL INSPECTOR Unavailable Sherita Reese HOT STRIP MILL INSPECTOR Unavailable Andi Merida MD Unavailable [phone] Avila Granger DPM Unavailable Unavailable Cat Rod MD Unavailable Rafiq Dolan MD Unavailable Lacey Rojas MD Unavailable Juancarlos Og MD Unavailable Isaac Swift MD Unavailable Sukhdeep Zepeda MD Unavailable [phone] Cat Rod MD Unavailable Haleigh Perla MD Primary Care Provider [phone] Encounter Details Date Type Department Care Team (Late st Contact Info) Description 04/07/2020 Procedure [address] [address] Social History Tobacco Use Types Packs/Day Years [...] st Contact Info) Description 02/19/2025 Procedure Pass [address] [address] 08/28/2025 11:30 AM EST Office Visit [address] [address] Alejandra Barfield MD [address] [place] [address] 10/03/2025 10:00 AM EDT Office Visit [facility] [address] [place] [address] 3rd Floor, [address] [place] [address] Samuel Lo MD [address] [place] [address] 10/04/2025 12:30 PM EDT Appointment [address] [address] Haleigh Perla MD [address] [place] [address] documented as of this encounter Visit Diagnoses Not on filedocumented in this encounter Additional Health Concerns Infection Onset Date Last Indicated Resolved Time CoV-Risk 07/29/2024 07/29/2024 08/09/2024 1:21 AM EST Assessment Noted Time PHQ-2 Depression Total Score: 6 11/05/19 18 9:36 AM EDT documented as of this encounter Care Teams Clinical Practitioner Relationship Specialty Start Date End Date Cat Rod MD [address] [place] [address] 7 [place] [address] [email or web address] PCP - General 05/12/17 12/22/21 Haleigh Perla MD [address] [place] [address] 7 [place] [address] PCP - General Family Medicine 12/23/21 Kristin Bear NP 1 [place] [address] Historical LMR Provider 05/14/17 2 Jett Pagan DO [address] [place] [address] 7 [place] [address] Historical LMR Provider 05/14/17 Fiorella Arredondo DO [address] [place] [address] 7 [place] [address] Historical LMR Provider 05/14/17 08/01/21 Cinthia Pa NP [address] [place] [address] Historical LMR Provider 05/14/17 2 Ted Kamara MD [address] [place] [address] [email or web address] Historical LMR Provider 05/14/17 08/01/21 Marina Diamond FNP [address] [place] [address] 7 [place] [address] [email or web address] Historical LMR Provider 05/14/17 Sherita Reese, SALLIE [address] [place] [address] Historical LMR Provider 05/14/17 2 Andi Merida MD [address] [place] [address] [email or web address] Historical LMR Provider 05/14/17 08/01/21 Avila Granger DPM [address] [place] [address] Historical LMR Provider 05/14/1708/01/21 Cat Rod MD [address] [place] [address] 7 [place] [address] [email or web address] Historical LMR Provider 05/14/17 Rafiq Dolan MD [address] [place] [address] Historical LMR Provider 05/14/17 2 Lacey Rojas MD [address] [place] [address] 7 [place] [address] [email or web address] Historical LMR Provider 05/14/17 08/01/21 Juancarlos Og MD [address] [facility] [address] [place] [address] [email or web address] Historical LMR Provider 05/14/17 08/01/21 Isaac Swift MD [address] [place] [address] Orthopedics [facility] Sports Medicine, [place] [address] [email or web address] Historical LMR Provider 05/14/17 2 Sukhdeep Zepeda MD [address] [place] [address] JHONNY [address] [place] [address] [email or web address] Historical LMR Provider 05/14/17 Cat Rod MD [address] [place] [address], [address] [place] [address] [email or web address] Insurance Assigned Provider 11/25/18 10/30/22 documented as of this encounter Additional Source Comments The information contained in this document represents components of the legal health record. It is not the complete legal health record.[facility]
--- OUTSIDE RECORDS SUMMARY | 2025-04-10 14:18 | XMS_ITS | Encounter Summary ---
Author Organization [facility] Address [address] [place] [address] [address] [place] [address] Phone Care Team Providers Care Steward/Stewardess Night Name Role Phone Jett Pagan Unavailable Marina DiamondP Unavailable Cat Rod MD Unavailable [phone] Sukhdeep Zepeda MD Unavailable [phone] Haleigh Perla MD Primary Care Provider [phone] Encounter Details Date Type Department Care Team (Late st Contact Info) Description 06/18/2024 Transcribe Orders [address] [id number] Haleigh Perla MD [address] [place] [address], [address] [place] [address] [email or web address] Social History Tobacco Use Types Packs/Day Years [...] Contact Info) Description 02/19/2025 Procedure Pass [address] [address] 08/28/2025 11:30 AM EST Office Visit [facility] Medicine [address] [place] [address] Alejandra Barfield MD [address] [place] [address] 10/03/2025 10:00 AM EDT Office Visit [facility] [address] [place] [address] 3rd Floor, [address] [place] [address] Samuel Lo MD [address] [place] [address] 10/04/2025 12:30 PM EDT Appointment [address] [address] Haleigh Perla MD [address] [place] [address] [email or web address] documented as of this encounter Visit Diagnoses Not on filedocumented in this encounter Additional Health Concerns Infection Onset Date Last Indicated Resolved Time CoV-Risk 07/29/2024 07/29/2024 08/09/2024 1:21 AM EST Assessment Noted Time PHQ-2 Depression Total Score: 0 06/24/20 9:32 AM EST documented as of this encounter Care Teams Steward/Stewardess Night Relationship Specialty Start Date End Date Haleigh Perla MD [address] [place] [address] [email or web address] PCP - General Family Medicine 12/23/21 Jett Pagan DO [address] [place] [address] [email or web address] Historical LMR Provider 05/14/17 Marina Diamond FNP [address] [place] [address] [email or web address] Historical LMR Provider 05/14/17 Cat Rod MD [address] [place] [address] [email or web address] Historical LMR Provider 05/14/17 Sukhdeep Zepeda MD [address] [place] [address] [email or web address] Historical LMR Provider 05/14/17 documented as of this encounter Additional Source Comments The information contained in this document represents components of the legal health record. It is not the complete legal health record.[facility]
--- OUTSIDE RECORDS SUMMARY | 2025-04-10 14:18 | XMS_ITS | Encounter Summary ---
Author Organization [facility] Address [address] [place] [address] Phone Care Team Providers Care Production Administrative Assistant Name Role Phone Cat Rod MD Primary Care Provider [phone] Kristin Bear JIRA ADMINISTRATOR Unavailable Jett Pagan DO Unavailable Arnulfo Fiorella Eloise DO Unavailable Cinthia Pa JIRA ADMINISTRATOR Unavailable Ted Kamara MD Unavailable Marina Diamond VFX ARTIST Unavailable Sherita Reese JIRA ADMINISTRATOR Unavailable Andi Merida MD Unavailable [phone] Avila Granger DPM Unavailable Unavailable Cat Rod MD Unavailable Rafiq Dolan MD Unavailable Lacey Rojas MD Unavailable Juancarlos Og MD Unavailable Isaac Swift MD Unavailable Sukhdeep Zepeda MD Unavailable [phone] Cat Rod MD Unavailable Haleigh Perla MD Primary Care Provider [phone] Encounter Details Date Type Department Care Team (Late st Contact Info) Description 04/07/2020 Ancillary Orders [address] [address] Cat Rod MD [address] [address] Breast cancer screening by mammogram Social History Tobacco Use Types Packs/Day Years [...] st Contact Info) Description 02/19/2025 Procedure Pass [address] [address] 08/28/2025 11:30 AM EST Office Visit [address] [address] Alejandra Barfield MD [address] [address] 10/03/2025 10:00 AM EDT Office Visit [facility] [address] [place] [address] 3rd Floor, [address] [place] [address] Samuel Lo MD 22 [facility], [address] [place] [address] 10/04/2025 12:30 PM EDT Appointment [address] [place] [address] Haleigh Perla MD [address] [place] [address], [address] [place] [address] [email or web address] documented as of this encounter Results * BI MAMMOGRAM SCREENING WITH TOMOSYNTHESIS WITH CAD (BILATERAL) (07/11/2020 3:38 PM EST) Anatomical Region Laterality Modality Breast Left, Breast Right, Breast Bilateral Bila teral Mammography 07/11/2020 3:55 PM EST Impressions 07/11/2020 3:58 PM EST No mammographic evidence of malignancy. BI-RADS CATEGORY: 1 - Negative. DENSITY: The breast tissue is almost entirely fat. Narrative 07/11/2020 3:58 PM EST Standard digital full-field 2-D C view and two-plane tomographic imaging was performed and compared with multiple prior studies, most recently 04/27/2018, with utilization of computer-aided detection. The breasts are almost entirely fatty. The stromal markings are essentially unchanged in overall appearance and distribution. No dominant spiculated mass, suspicious clustered microcalcifications, or focal zone of pathologic skin thickening or retraction are noted to have arisen in the interim. Procedure Note [place] Duque MD - 07/11/2020 Standard digital full-field 2-D C view and two-plane tomographic imagingwas performed and compared with multiple prior studies, most ofsxasbk98/4/2018, with utilization of computer-aided detection. The breasts are almost entirely fatty. The stromal markings areessentially unchanged in overall appearance and distribution. No dominantspiculated mass, suspicious clustered microcalcifications, or focal zoneof pathologic skin thickening or retraction are noted to have arisen inthe interim. IMPRESSION: No mammographic evidence of malignancy. BI-RADS CATEGORY: 1 - Negative. DENSITY: The breast tissue is almost entirely fat. Cat Rod MD IMG MG EXAMS Final Result documented in this encounter Visit Diagnoses Diagnosis Breast cancer screening by mammogram Breast cancer screening by mammogram documented in this encounter Additional Health Concerns Infection Onset Date Last Indicated Resolved Time CoV-Risk 07/29/2024 07/29/2024 08/09/2024 1:21 AM EST Assessment Noted Time PHQ-2 Depression Total Score: 6 11/05/19 18 9:36 AM EDT documented as of this encounter Care Teams Production Administrative Assistant Relationship Specialty Start Date End Date Cat Rod MD [address] [place] [address] PCP - General 05/12/17 12/22/21 Haleigh Perla MD [address] [place] [address] PCP - General Family Medicine 12/23/21 Kristin Bear NP [address] [place] [address] Historical LMR Provider 05/14/17 2 Jett Pagan DO [address] [place] [address] Historical LMR Provider 05/14/17 Fiorella Arredondo DO [address] [place] [address] Historical LMR Provider 05/14/17 08/01/21 Cinthia Pa NP [address] [place] [address] Historical LMR Provider 05/14/17 2 Ted Kamara MD [address] [place] [address] [email or web address] Historical LMR Provider 05/14/17 08/01/21 Marina Diamond ShantalSTEFF [address] [place] [address] 7 [place] [address] [email or web address] Historical LMR Provider 05/14/17 Sherita Reese, SALLIE [address] [place] [address] Historical LMR Provider 05/14/17 2 Andi Merida MD [address] [place] [address] [email or web address] Historical LMR Provider 05/14/17 08/01/21 Avila Granger DPM [address] [place] [address] Historical LMR Provider 05/14/1708/01/21 Cat Rod MD [address] [place] [address] 7 [place] [address] [email or web address] Historical LMR Provider 05/14/17 Rafiq Dolan MD [address] [place] [phone] Historical LMR Provider 05/14/17 2 Lacey Rojas MD [address] [place] [address] 7 [place] [address] Historical LMR Provider 05/14/17 08/01/21 Juancarlos Og MD [address] [place] [address] [address] [place] [phone] [email or web address] Historical LMR Provider 05/14/17 08/01/21 Isaac Swift MD [address] [place] [address] Orthopedics [facility] Sports Medicine, [place] [address] [email or web address] Historical LMR Provider 05/14/17 2 Sukhdeep Zepeda MD [address] [place] [address] 1 [place] [address] [email or web address] Historical LMR Provider 05/14/17 Cat Rod MD [address] [place] [address], [address] [place] [address] [email or web address] Insurance Assigned Provider 11/25/18 10/30/22 documented as of this encounter Additional Source Comments The information contained in this document represents components of the legal health record. It is not the complete legal health record.[facility]
--- OUTSIDE RECORDS SUMMARY | 2025-04-10 14:18 | XMS_ITS | Encounter Summary ---
Author Organization [facility] Address [address] [place] [address] Phone Care Team Providers Care General Agent Name Role Phone CherylstoneJett Unavailable Marina DiamondP Unavailable Cat Rod MD Unavailable Sukhdeep Zepeda MD Unavailable [phone] Haleigh Perla MD Primary Care Provider Encounter Details Date Type Department Care Team (Late st Contact Info) Description 12/27/2023 Procedure Pass [facility] Endoscopy Admitting Dept Virtual Department [address] [place] [address] Social History Tobacco Use Types Packs/Day Years [...] st Contact Info) Description 02/19/2025 Procedure Pass [address] [address] 08/28/2025 11:30 AM EST Office Visit [facility] [address] [place] [address] Alejandra Barfield MD 234 [facility], [facility] 7 [place] [address] 10/03/2025 10:00 AM EDT Office Visit [facility] [address] [facility] 3rd Floor, [address] [place] [address] Samuel Lo MD 22 [facility], [address] [place] [address] 10/04/2025 12:30 PM EDT Appointment [facility], [facility] 30 [place] [address] Haleigh Perla MD [address] [place] [address] documented as of this encounter Visit Diagnoses Not on filedocumented in this encounter Additional Health Concerns Infection Onset Date Last Indicated Resolved Time CoV-Risk 07/29/2024 07/29/2024 08/09/2024 1:21 AM EST Assessment Noted Time PHQ-2 Depression Total Score: 0 06/24/20 21 9:32 AM EST documented as of this encounter Care Teams General Agent Relationship Specialty Start Date End Date Haleigh Perla MD [address] [place] [address] 7 [place] [address] PCP - General Family Medicine 12/23/21 Jett Pagan DO [address] [place] [address] 7 [place] [address] Historical LMR Provider 05/14/17 Marina Diamond FNP 234 [facility] 7 [place] [address] [email or web address] Historical LMR Provider 05/14/17 Cat Rod MD [address] [place] [address] 7 [place] [address] [email or web address] Historical LMR Provider 05/14/17 Sukhdeep Zepeda MD [address] [place] [address] [email or web address] Historical LMR Provider 05/14/17 documented as of this encounter Additional Source Comments The information contained in this document represents components of the legal health record. It is not the complete legal health record.[facility]
--- OUTSIDE RECORDS SUMMARY | 2025-04-10 14:18 | XMS_ITS | Encounter Summary ---
Author Organization [facility] Address [address] [place] [address] Phone Care Team Providers Care Medication Manager Name Role Phone CherylstoneJett Unavailable Marina DiamondP Unavailable [phone] Cat Rod MD Unavailable [phone] Sukhdeep Zepeda MD Unavailable [phone] Haleigh Perla MD Primary Care Provider Encounter Details Date Type Department Care Team (Late st Contact Info) Description 12/26/2023 Procedure Pass [facility] Endoscopy Admitting Dept Virtual Department [address] [place] [address] Social History Tobacco Use Types Packs/Day Years [...] Contact Info) Description 02/19/2025 Procedure Pass [address] [address] 08/28/2025 11:30 AM EST Office Visit [facility] 234 [place] [address] Alejandra Barfield MD 234 [facility], [facility] 7 [place] [address] 10/03/2025 10:00 AM EDT Office Visit [facility] 22 [facility] 3rd Floor, [address] [place] [address] Samuel Lo MD 22 [facility], [address] [place] [address] 10/04/2025 12:30 PM EDT Appointment [facility], [facility] 30 [place] [address] Haleigh Perla MD [address] [place] [address] documented as of this encounter Visit Diagnoses Not on filedocumented in this encounter Additional Health Concerns Infection Onset Date Last Indicated Resolved Time CoV-Risk 07/29/2024 07/29/2024 08/09/2024 1:21 AM EST Assessment Noted Time PHQ-2 Depression Total Score: 0 06/24/20 21 9:32 AM EST documented as of this encounter Care Teams Medication Manager Relationship Specialty Start Date End Date Haleigh Perla MD [address] [place] [address] 7 [place] [address] PCP - General Family Medicine 12/23/21 Jett Pagan DO [address] [place] [address] 7 [place] [address] Historical LMR Provider 05/14/17 Marina Diamond FNP 234 [facility] 7 [place] [address] [email or web address] Historical LMR Provider 05/14/17 Cat Rod MD [address] [place] [address] 7 [place] [address] [email or web address] Historical LMR Provider 05/14/17 Sukhdeep Zepeda MD [address] [place] [address] [email or web address] Historical LMR Provider 05/14/17 documented as of this encounter Additional Source Comments The information contained in this document represents components of the legal health record. It is not the complete legal health record.[facility]
--- OUTSIDE RECORDS SUMMARY | 2025-04-10 14:19 | XMS_ITS | Encounter Summary ---
Author Organization [facility] Address [address] [place] [address] Phone Care Team Providers Care Home Demonstrator Name Role Phone CherylstoneJett Jr GUTIERREZ Unavailable Marina DiamondP Unavailable [phone] Cat Rod MD Unavailable [phone] Sukhdeep Zepeda MD Unavailable [phone] Haleigh Perla MD Primary Care Provider Encounter Details Date Type Department Care Team (Late st Contact Info) Description 12/27/2022 Procedure Pass [facility], [address] [address] Social History Tobacco Use Types Packs/Day Years [...] high school, GED, job training, learning the [place] language, technical skills, or developing parenting skills)? [...] with a working camera? Not on file Comments No Sex and Gender Information Value Date Recorded Sex Assigned at Female 07/03/2018 4:27 PM EST Legal Sex Female 10:01 PM EDT Gender Identity Female 07/03/2018 4:27 PM EST Sexual Orientation Straight 07/03/2018 4: 27 PM EST documented as of this encounter Plan of Treatment Upcoming Encounters Date Type Department Care Team (Late st Contact Info) Description 02/19/2025 Procedure Pass [facility] 30 [place] [address] 08/28/2025 11:30 AM EST Office Visit [facility] 234 [place] [address] Alejandra Barfield MD 234 [facility], [address] [place] [address] 10/03/2025 10:00 AM EDT Office Visit [facility] [address] [place] [address] 3rd Floor, [address] [place] [address] Samuel Lo MD 22 [facility], [address] [place] [address] [email or web address] 10/04/2025 12:30 PM EDT Appointment [facility], [facility] 30 [place] [address] Haleigh Perla MD 234 [facility] 7 [place] [address] [email or web address] documented as of this encounter Visit Diagnoses Not on filedocumented in this encounter Additional Health Concerns Infection Onset Date Last Indicated Resolved Time CoV-Risk 07/29/2024 07/29/2024 08/09/2024 1:21 AM EST Assessment Noted Time PHQ-2 Depression Total Score: 0 06/24/20 9:32 AM EST documented as of this encounter Care Teams Home Demonstrator Relationship Specialty Start Date End Date Haleigh Perla MD [address] [place] [address] 7 [place] [address] [email or web address] PCP - General Family Medicine 12/23/21 Jett Pagan DO [address] [place] [address] 7 [place] [address] [email or web address] Historical LMR Provider 05/14/17 Marina Diamond FNP [address] [place] [address] 7 [place] [address] [email or web address] Historical LMR Provider 05/14/17 Cat Rod MD [address] [place] [address] 7 [place] [address] [email or web address] Historical LMR Provider 05/14/17 Sukhdeep Zepeda MD [address] [place] [address] [email or web address] Historical LMR Provider 05/14/17 documented as of this encounter Additional Source Comments The information contained in this document represents components of the legal health record. It is not the complete legal health record.[facility]
--- OUTSIDE RECORDS SUMMARY | 2025-04-10 14:19 | XMS_ITS | Encounter Summary ---
Author Organization [facility] Address [address] [place] [address] Phone Care Team Providers Care Early Childhood Associate Name Role Phone Jett Pagan Unavailable Marina Diamond WATCH ELECTRICIAN Unavailable Cat Rod MD Unavailable [phone] Sukhdeep Zepeda MD Unavailable [phone] Cat Rod MD Unavailable [phone] Haleigh Perla MD Primary Care Provider Encounter Details Date Type Department Care Team (Late st Contact Info) Description 08/03/2022 Procedure Pass [address] [address] Social History Tobacco Use Types Packs/Day Years [...] high school, GED, job training, learning the Irish language, technical skills, or developing parenting skills)? [...] st Contact Info) Description 02/19/2025 Procedure Pass [address] [address] 08/28/2025 11:30 AM EST Office Visit [facility] Family Medicine [address] [place] [address] Alejandra Barfield MD [address] [place] [address] 7 [place] [address] 10/03/2025 10:00 AM EDT Office Visit [facility] [address] [place] [address] [address]rd Floor, [address] [place] [address] Samuel Lo MD [address] [facility], [address] [place], [place] [id number] [email or web address] 10/04/2025 12:30 PM EDT Appointment [facility], [facility] [address] [place] [address] Haleigh Perla MD [address] [place] [address] 7 [place] [address] [email or web address] documented as of this encounter Visit Diagnoses Not on filedocumented in this encounter Additional Health Concerns Infection Onset Date Last Indicated Resolved Time CoV-Risk 07/29/2024 07/29/2024 08/09/2024 1:21 AM EST Assessment Noted Time PHQ-2 Depression Total Score: 0 06/24/20 9:32 AM EST documented as of this encounter Care Teams Early Childhood Associate Relationship Specialty Start Date End Date Haleigh Perla MD [address] [place] [address] [place] [address] PCP - General Family Medicine 12/23/21 Jett Pagan DO [address] [place] [address] [place] [address] [email or web address] Historical LMR Provider 05/14/17 Marina Diamond FNP [address] [place] [address] [place] [address] [email or web address] Historical LMR Provider 05/14/17 Cat Rod MD [address] [place] [address] [place] [address] [email or web address] Historical LMR Provider 05/14/17 Sukhdeep Zepeda MD [address] [place] [address] [email or web address] Historical LMR Provider 05/14/17 Cat Rod MD [address] [place] [address] 7 [place] [address] [email or web address] Insurance Assigned Provider 11/25/18 10/30/22 documented as of this encounter Additional Source Comments The information contained in this document represents components of the legal health record. It is not the complete legal health record.[facility]
--- OUTSIDE RECORDS SUMMARY | 2025-04-10 14:19 | XMS_ITS | Encounter Summary ---
Author Organization [facility] Address [address] [place] [address] Phone Care Team Providers Care Product Assembler Name Role Phone EjJett Jr GUTIERREZ Unavailable Marina DiamondP Unavailable Cat Rod MD Unavailable [phone] Sukhdeep Zepeda MD Unavailable Haleigh Perla MD Primary Care Provider Encounter Details Date Type Department Care Team (Late st Contact Info) Description 03/21/2023 Procedure Pass [facility], Ct Scan - [address] [address] Social History Tobacco Use Types Packs/Day Years [...] high school, GED, job training, learning the Syrian language, technical skills, or developing parenting skills)? [...] st Contact Info) Description 02/19/2025 Procedure Pass [facility] [address] [place] [address] 08/28/2025 11:30 AM EST Office Visit [facility] Medicine [address] [place] [address] Alejandra Barfield MD [address] [facility], [address] [place] [address] 10/03/2025 10:00 AM EDT Office Visit [facility] [address] [place] [address] [address]rd Floor, [address] [place] [address] Samuel Lo MD 22 [facility], [address] [place] [address] [email or web address] 10/04/2025 12:30 PM EDT Appointment [facility], [facility] [address] [place] [address] Haleigh Perla MD [address] [facility] 7 [place] [address] [email or web address] documented as of this encounter Visit Diagnoses Not on filedocumented in this encounter Additional Health Concerns Infection Onset Date Last Indicated Resolved Time CoV-Risk 07/29/2024 07/29/2024 08/09/2024 1:21 AM EST Assessment Noted Time PHQ-2 Depression Total Score: 0 06/24/20 9:32 AM EST documented as of this encounter Care Teams Product Assembler Relationship Specialty Start Date End Date Haleigh Perla MD [address] [place] [address] 7 [place] [address] [email or web address] PCP - General Family Medicine 12/23/21 Jett Paagn DO [address] [place] [address] 7 [place] [address] [email or web address] Historical LMR Provider 05/14/17 Marina Diamond FNP [address] [place] [address] 7 [place] [address] [email or web address] Historical LMR Provider 05/14/17 Cat Rod MD [address] [place] [address] 7 [place] [address] [email or web address] Historical LMR Provider 05/14/17 Sukhdeep Zepeda MD [address] [address] [email or web address] Historical LMR Provider 05/14/17 documented as of this encounter Additional Source Comments The information contained in this document represents components of the legal health record. It is not the complete legal health record.[facility]
--- OUTSIDE RECORDS SUMMARY | 2025-04-10 14:19 | XMS_ITS | Encounter Summary ---
Author Organization [facility] Address [address] [place] [address] Phone Care Team Providers Care Ict Systems Test Engineer Name Role Phone Cat Rod MD Primary Care Provider [phone] Kristin Bear HASHER OPERATOR Unavailable Jett Pagan DO Unavailable Arnulfo Fiorella Eloise DO Unavailable Cinthia Pa HASHER OPERATOR Unavailable Ted Kamara MD Unavailable Marina Diamond SENIOR MANAGING DIRECTOR Unavailable Sherita Reese HASHER OPERATOR Unavailable Andi Merida MD Unavailable [phone] Avila Granger DPM Unavailable Unavailable Cat Rod MD Unavailable Rafiq Dolan MD Unavailable Lacey Rojas MD Unavailable Juancarlos Og MD Unavailable Isaac Swift MD Unavailable Sukhdeep Zepeda MD Unavailable [phone] Cat Rod MD Unavailable Haleigh Perla MD Primary Care Provider [phone] Encounter Details Date Type Department Care Team (Late st Contact Info) Description 04/20/2018 Ancillary Orders [address] [address] Cat Rod MD [address] [place] [address] [email or web address] Breast screening Social History Tobacco Use Types Packs/Day Years Used Date Smoking Tobacco: Never Smokeless Tobacco: Never Alcohol Use Standard Drinks/Week Comments Yes 0 (1 standard drink = 0.6 oz pur e alcohol) Comments Unknown Sex and Gender Information Value Date Recorded Sex Assigned at Female 07/03/2018 4:27 PM EST Legal Sex Female 10:01 PM EDT Gender Identity Female 07/03/2018 4:27 PM EST Sexual Orientation Straight 07/03/2018 4: 27 PM EST documented as of this encounter Plan of Treatment Upcoming Encounters Date Type Department Care Team (Late st Contact Info) Description 02/19/2025 Procedure Pass [address] [address] 08/28/2025 11:30 AM EST Office Visit [address] [address] Alejandra Barfield MD [address] [place] [address] 10/03/2025 10:00 AM EDT Office Visit [facility] [address] [place] [address] 3rd Floor, [address] [place] [address] Samuel Lo MD [address] [place] [address], [address] [place] [address] 10/04/2025 12:30 PM EDT Appointment [address] [address] Haleigh Perla MD [address] [place] [address], [address] [place] [address] [email or web address] documented as of this encounter Results * BI MAMMOGRAM SCREENING WITH TOMOSYNTHESIS WITH CAD (BILATERAL) (04/27/2018 2:35 PM EDT) Anatomical Region Laterality Modality Breast Left, Breast Right, Breast Bilateral Bila teral Mammography 04/28/2018 8:11 AM EDT Impressions 04/28/2018 8:14 AM EDT No mammographic signs of malignancy. Annual screening is recommended. BI-RADS CATEGORY: 1 - Negative. DENSITY: There are scattered fibroglandular densities. POS - CDHMAM2 Narrative 04/28/2018 8:14 AM EDT Bilateral mammography is performed in conjunction with computed aided detection. 3-D tomography along with 2-D C view imaging was also performed. Comparison made to previous dated as far back as 09/17/2008 and as recent as 04/17/2015. No suspicious masses, areas of architectural distortion or suspicious microcalcifications. Procedure Note Edenilson Alegria MD - 04/28/2018 Bilateral mammography is performed in conjunction with computed aideddetection. 3-D tomography along with 2-D C view imaging was alsoperformed. Comparison made to previous dated as far back as 09/17/2008 andas recent as 04/17/2015. No suspicious masses, areas of architectural distortion or suspiciousmicrocalcifications. IMPRESSION: No mammographic signs of malignancy. Annual screening is recommended. BI-RADS CATEGORY: 1 - Negative. DENSITY: There are scattered fibroglandular densities. POS - CDHMAM2 Cat Rod MD IMG MG EXAMS Final Result documented in this encounter Visit Diagnoses Diagnosis Breast screening Breast screening, unspecified Breast screening Breast screening, unspecified documented in this encounter Additional Health Concerns Infection Onset Date Last Indicated Resolved Time CoV-Risk 07/29/2024 07/29/2024 08/09/2024 1:21 AM EST Assessment Noted Time PHQ-2 Depression Total Score: 6 11/05/19 18 9:36 AM EDT documented as of this encounter Care Teams Ict Systems Test Engineer Relationship Specialty Start Date End Date Cat Rod MD [address] [place] [address] 7 [place] [address] [email or web address] PCP - General 05/12/17 12/22/21 Haleigh Perla MD [address] [place] [address] 7 [place] [address] [email or web address] PCP - General Family Medicine 12/23/21 Kristin Bear HASHER OPERATOR 1 [place] [address] Historical LMR Provider 05/14/17 2 Jett Pagan DO [address] [place] [address] 7 [place] [address] [email or web address] Historical LMR Provider 05/14/17 Fiorella Arredondo DO [address] [place] [address] 7 [place] [address] [email or web address] Historical LMR Provider 05/14/17 08/01/21 Cinthia Pa NP [address] [place] [address] Historical LMR Provider 05/14/17 2 Ted Kamara MD [address] [place] [address] Historical LMR Provider 05/14/17 08/01/21 Marina Diamond FNP [address] [place] [address] 7 [place] [address] [email or web address] Historical LMR Provider 05/14/17 Sherita Reese NP [address] [place] [address] Historical LMR Provider 05/14/17 2 Andi Merida MD [address] [place] [address] [email or web address] Historical LMR Provider 05/14/17 08/01/21 Avila Granger DPM [address] [place] [address] Historical LMR Provider 05/14/1708/01/21 Cat Rod MD [address] [place] [address] 7 [place] [address] [email or web address] Historical LMR Provider 05/14/17 Rafiq Dolan MD [address] [place] [phone] Historical LMR Provider 05/14/17 2 Lacey Rojas MD [address] [place] [address] 7 [place] [address] [email or web address] Historical LMR Provider 05/14/17 08/01/21 Juancarlos Og MD [address] [place], [place] [address] [place] [address] Historical LMR Provider 05/14/17 08/01/21 Isaac Swift MD [address] [place] [address] [facility], [facility] [place] [address] Historical LMR Provider 05/14/17 2 Sukhdeep Zepeda MD 10 [facility] [address] [place] [address] [email or web address] Historical LMR Provider 05/14/17 Cta Rod MD [address] [facility], [address] [place] [address] [email or web address] Insurance Assigned Provider 11/25/18 10/30/22 documented as of this encounter Additional Source Comments The information contained in this document represents components of the legal health record. It is not the complete legal health record.[facility]
== END 2025-04-10 11:50 | disposition home or self-care (01) ==
PROVIDERS: Visit Provider Orthopaedic Surgery
DX: M25.562 Pain in left knee (principal); M17.12 Unilateral primary osteoarthritis, left knee
CPT/HCPCS: 99214; G2211

== ENCOUNTER → 2025-04-10 11:05 | Outpatient (BNVA) | payer MEDICARE, SELFPAY | PROVIDERS: Visit Provider Orthopaedic Surgery | DX: M25.562 Pain in left knee (principal); M17.12 Unilateral primary osteoarthritis, left knee | CPT/HCPCS: 99212 ==

== ENCOUNTER → 2025-07-04 10:37 | Outpatient (BNVA) | payer MEDICARE, SELFPAY | DX: Z01.818 Encounter for other preprocedural examination (principal) ==

== ENCOUNTER → 2025-07-12 11:16 | Outpatient (BNV) | payer MEDICARE, SELFPAY | PROVIDERS: PCP Student in an Organized Health Care Education/Training Program; Visit Provider Internal Medicine Cardiovascular Disease | DX: I44.4 Left anterior fascicular block (principal) | CPT/HCPCS: 93010 ==